=== PATIENT | female | born 1980 | race Caucasian/White ===

== ENCOUNTER 2018-01-27 11:42 | Emergency (ER) | payer MEDICAID, SELFPAY ==
[2018-01-27 11:44] VITALS: BP 143/94; PULSE 129; RESP 24; TEMP 36.8; O2SAT 93; BMI 37.0
--- NOTE | 2018-01-27 12:23 | EKG12_ITS ---
Test Reason : SOB Blood Pressure : / mmHG Vent. Rate : 122 BPM Atrial Rate : 122 BPM P-R Int : 140 ms QRS Dur : 086 ms QT Int : 312 ms P-R-T Axes : 068 -09 099 degrees QTc Int : 444 ms Sinus tachycardia Poor R wave progression Confirmed by ADAMARIS KLINE, ANTONIETA ([id number]), primer expeditor and drier SONY RUSHING ([id number]) on 01/31/2018 2:49:46 PM Referred By: BONNIE Confirmed By:ANTONIETA BAILON MD
--- NOTE | 2018-01-27 12:32 | PCA ---
NO OLD EKG IN MUSE
[2018-01-27 12:45] VITALS: PULSE 113; RESP 18
[2018-01-27] MEDS: Ipratropium/Albuterol Sulfate 3 ML AMPUL.NEB INHALATION (12:45)
--- NOTE | 2018-01-27 12:45 | ED.VISSUMM ---
- ER Visit Summary Date of Service: 01/27/18 Chief Complaint: Cough and shortness of breath History of Present Illness: The patient is a 37 F with no primary care physician. She reports that she has a cough began approximately 2 weeks ago. Is productive white, clear, yellow sputum without blood. No fever or chills. She has severe shortness of breath and has been wheezing. She ran out of her inhaler approximately 3 weeks ago. She has been nausea and vomited twice. No blood in her emesis. Patient denies any personal history of DVT. No recent travel. No ankle swelling or calf pain. Chest pain. Physical Examination: Vitals: 98.2, 143/94, 129, 24, 93% on room air which is not hypoxic. General: Well-nourished and well-developed. Head: Normocephalic atraumatic. Neck: Supple, no lymphadenopathy. No JVD. Nontender. Cardiovascular: Tachycardic regular rhythm. No murmurs. Respiratory: No respiratory distress. Mild wheezing bilaterally with greatly decreased air movement. Abdominal: Soft, nontender, nondistended, normal bowel sounds. No guarding, rebound, or peritoneal signs. Back: Nontender. Extremities: Nontender, no edema. Skin: Normal color, no rash. Neurologic: Alert and oriented ?3. Cranial nerves II through XII are intact. Normal strength and sensation. Psych: Normal affect. Test Results: CBC is marked for white count of 11.9 with 75 segmented neutrophils and 12 lymphocytes. Chem-7 is more for creatinine 1.03. Glucose is 110. Lactic acid is 1.2. EKG sinus tach at 122 with no ischemic changes. There is no old EKG for comparison. Chest x-ray is read by the radiologist shows a focal infiltrate in her posterior medial right lower lobe. Emergency Department Course and Treatment: Patient was treated with albuterol Atrovent aerosols. She is given Solu-Medrol IV. Her wheezing has resolved and her heart rate is decreased into the low 100s. She was given Levaquin p.o. Treatment Plan: Patient feels much improved and would like to go home. She will be discharged with an albuterol MDI, 5 day burst of prednisone, and Levaquin. Instructed to follow-up the [facility] in 5 days if not improving. Return to the emergency department for any worsening symptoms. Disposition: To home in improved and stable condition. Impression: 1. Pneumonia, community-acquired. This note was generated with [employer] dictation software. It may contain incorrect words, spelling, and punctuation that were not noted in review of the chart prior to signing ED Disposition - Plan for ED Patient: Disposition: Home or Assisted Living Chief Complaint: Shortness of Breath Instructions: ED Pneumonia Adult Prescriptions: Albuterol Inhaler [Ventolin Hfa] 1 - 2 puff INHALATION Q4H PRN PRN #1 inhaler PRN Reason: Wheezing Levofloxacin [Levaquin] 750 mg PO DAILY #7 tablet Prednisone [Deltasone] 60 mg PO DAILY #15 tablet Referrals: Kelly Luis [NON-STAFF] - 3-5 Days if not improving
[2018-01-27] MEDS: 0.9% Normal Saline 1,000 ML 999 ML IV (12:49)
[2018-01-27] MEDS: MethylPREDNISolone 125 MG/2 ML Vial IV (12:52)
--- NOTE | 2018-01-27 12:55 | RAD_ITS ---
STUDY: X-RAY CHEST REASON FOR EXAM: Female, 37 years old. Cough. TECHNIQUE: PA and lateral views of the chest. COMPARISON: None. FINDINGS: EKG electrodes are seen. Focal infiltrate in the posterior medial segment of the right lower lobe. There is no demonstrated pleural abnormality. Normal size heart. Normal mediastinum and renetta. Normal visualized pulmonary arteries. Normal visualized aortic arch and descending thoracic aorta. There is a dextroscoliosis of the thoracic spine. Normal visualized ribs, clavicles, and shoulders. There is no demonstrated abnormality of the visualized soft tissue structures of the upper abdomen. RAD/Chest PA and Lateral IMPRESSION: Focal infiltrate in the posterior medial segment of the right lower lobe. Electronically Signed: Prince Suh MD at 13:12 EDT Tel [phone], Service support ,
[2018-01-27 13:14] LABS: Absolute Lymphocyte Count 1.43 X10^3/ul (0.83-4.51); Basophil# 0.02 X10^3/uL; Basophil% 0.2 % (0-1); Eosinophil# 0.44 X10^3/uL; Eosinophils% 3.7 % (0-5); Hematocrit 40.7 % (37-47); Hemoglobin 12.4 g/dl (12.0-15.0); Lymphocyte # 1.43 X10^3/ul (4.0); Mean Corp Hgb Conc 30.5 g/gl (32-36); Mean Corpuscular Hgb 21.9 pg (27.0-32.0); Mean Platelet Vol. 8.5 fl (6.2-12.0); Monocyte# 1.02 X10^3/uL; Monocyte% 8.5 % (0-10); Neutrophil # 9.01 X10^3/uL (2.7-7.7); Neutrophil % 75.4 % (47-70); Platelet Count 294 K/mm3 (150-450); RBC Distribution Width CV 18.2 % (11.6-14.6); RBC Distribution Width SD 47.9 fl (35.1-43.9); Red Blood Count 5.65 M/mm3 (4.2-5.4); White Blood Count 11.9 K/mm3 (4.4-11.0)
[2018-01-27 13:16] LABS: Differential Indicated SCAN CRITERIA MET; POSITIVE COUNT NO; POSITIVE DIFFERENTIAL NO; POSITIVE MORPHOLOGY YES
[2018-01-27 13:20] LABS: Anion Gap 5 (5-15); BUN 13 mg/dL (7-18); BUN/Creat Ratio 12.6 RATIO (10-20); Calcium,Total 8.7 mg/dL (8.5-10.1); Chloride 102 mmol/L (98-107); Creatinine, Serum 1.03 mg/dL (0.55-1.02); EST Glomerular Filtration Rate 64 mL/min (>60); Est Glom Filt Rate - Afr Amer 78 mL/min (>60); Estimated Creatinine Clearance 67.94 ml/min; Glucose 110 mg/dL (74-106); Potassium 4.1 mmol/L (3.5-5.1); Sodium Level 136 mmol/L (136-145)
[2018-01-27 13:36] LABS: Hypochromasia RARE; Microcytosis 2+; Platelet Estimate ADEQUATE (ADEQ)
[2018-01-27 13:37] LABS: Lactic Acid 1.3 mmol/L (0.4-2.0)
[2018-01-27] MEDS: levoFLOXacin 750 MG Tablet PO (14:03)
[2018-01-27 14:04] VITALS: BP 109/97; PULSE 107; RESP 22; O2SAT 95
== END 2018-01-27 14:05 | disposition home or self-care (01) ==
PROVIDERS: Emergency Provider Emergency Medicine
DX: J18.9 Pneumonia, unspecified organism (principal); J45.909 Unspecified asthma, uncomplicated; Z87.01 Personal history of pneumonia (recurrent); Z90.710 Acquired absence of both cervix and uterus
CPT/HCPCS: 36415; 71046; 80048; 83605; 85025; 87040; 93005; 94640; 96361; 96374; 99285; J7030

== ENCOUNTER 2018-02-02 16:45 | Inpatient (IN) | payer MEDICAID, SELFPAY ==
[2018-02-02 16:46] VITALS: BP 138/78; PULSE 142; RESP 18; TEMP 36.8; O2SAT 99; BMI 37.3
[2018-02-02 17:24] LABS: Absolute Lymphocyte Count 1.16 X10^3/ul (0.83-4.51); Absolute Neutrophil Count 16.4 X10^3/uL (2.0-7.7); Basophil# 0.02 X10^3/uL; Basophil% 0.1 % (0-1); Eosinophil# 0.04 X10^3/uL; Eosinophils% 0.2 % (0-5); Hematocrit 40.7 % (37-47); Hemoglobin 12.6 g/dl (12.0-15.0); Lymphocyte # 1.16 X10^3/ul (4.0); Lymphocyte % 6.1 % (19-41); Mean Corpuscular Hgb 21.8 pg (27.0-32.0); Mean Corpuscular Volume 70.5 fL (81-99); Mean Platelet Vol. 8.7 fl (6.2-12.0); Monocyte# 1.22 X10^3/uL; Monocyte% 6.5 % (0-10); Neutrophil # 16.38 X10^3/uL (2.7-7.7); Neutrophil % 86.8 % (47-70); Platelet Count 282 K/mm3 (150-450); RBC Distribution Width CV 18.4 % (11.6-14.6); RBC Distribution Width SD 47.3 fl (35.1-43.9); Red Blood Count 5.77 M/mm3 (4.2-5.4); White Blood Count 18.9 K/mm3 (4.4-11.0)
[2018-02-02 17:25] LABS: POSITIVE COUNT NO; POSITIVE DIFFERENTIAL NO; POSITIVE MORPHOLOGY NO
[2018-02-02 17:41] LABS: Anion Gap 12 (5-15); BUN 50 mg/dL (7-18); BUN/Creat Ratio 11.5 RATIO (10-20); Calcium,Total 9.2 mg/dL (8.5-10.1); Chloride 99 mmol/L (98-107); Creatinine, Serum 4.36 mg/dL (0.55-1.02); EST Glomerular Filtration Rate 12 mL/min (>60); Est Glom Filt Rate - Afr Amer 15 mL/min (>60); Estimated Creatinine Clearance 16.05 ml/min; Glucose 132 mg/dL (74-106); Potassium 4.6 mmol/L (3.5-5.1); Sodium Level 134 mmol/L (136-145)
[2018-02-02 17:51] LABS: Pregnancy, Serum, hCG Quali. NEGATIVE Negative (0-9 Nonpreg)
--- NOTE | 2018-02-02 17:57 | RAD_ITS ---
STUDY: X-RAY - ACUTE ABDOMINAL SERIES REASON FOR EXAM: Female, 37 years old. Distention nausea and vomiting. TECHNIQUE: Single view of the chest. Supine, and erect view(s) of the abdomen were obtained. COMPARISON: 01/27/2018. FINDINGS: Probable persistent atelectasis or infiltrate in the medial right lung base. Normal size heart. Normal mediastinum and renetta. Normal visualized pulmonary arteries. Normal visualized aortic arch and descending thoracic aorta. There is a non-specific bowel gas pattern. The soft tissue structures of the abdomen and pelvis are unremarkable. S-shaped scoliosis throughout the spine. RAD/Acute Abdomen Inc Chest IMPRESSION: Persistent density in the medial right lung base consistent with atelectasis or infiltrate. No evidence of obstruction. Electronically Signed: Hai Hermosillo MD at 19:08 EDT , Service support ,
[2018-02-02] MEDS: proMETHazine 25 MG/ML Syringe 6.25 MG IV (18:05)
[2018-02-02] MEDS: 0.9% Normal Saline 1,000 ML 1000 ML IV ×2 (18:06→20:48)
[2018-02-02 18:09] VITALS: BP 110/90; PULSE 138; RESP 16; O2SAT 96
[2018-02-02] MEDS: Morphine 4 MG/ML Syringe IV ×2 (18:23→20:53)
[2018-02-02 18:53] LABS: AST(SGOT) 29 U/L (15-37); Alanine Aminotransfer ALT/SGPT 11 U/L (13-56); Albumin, Serum 2.2 g/dL (3.2-5.0); Alkaline Phosphatase 62 U/L (45-117); Bilirubin, Direct 0.15 mg/dL (0.00-0.30); Globulin 4.9 g/dL (2.2-4.2); Lipase 43 U/L (73-393); Protein, Total 7.1 g/dL (6.4-8.2)
[2018-02-02 20:41] VITALS: BP 134/100; PULSE 129; RESP 19; O2SAT 93
--- NOTE | 2018-02-02 20:47 | US_ITS ---
STUDY: ABDOMINAL ULTRASOUND - RIGHT UPPER QUADRANT REASON FOR VISIT: Female, 37 years old. Abdominal pain. Nausea and vomiting. TECHNIQUE: Ultrasound evaluation of the right upper quadrant was performed with real-time and static johansen-scale imaging. TECHNICAL QUALITY: Adequate. COMPARISON: None. FINDINGS: Liver: The liver measures 19.5 cm. There is a heterogeneous echogenicity of the liver. The bile ducts are within normal limits. There is hepatic color flow. The direction of portal flow is hepatopetal. There is no demonstrated mass lesion. Gallbladder: Normal distended gallbladder. The gallbladder wall measures 3 mm. There is a negative sonographic Tejada's sign. There is pericholecystic fluid. There are no gallstones. There is sludge. Common Bile Duct (C.B.D.): The common bile duct measures 6 mm. Pancreas: Normal size of the head, body of the pancreas. Tail of the pancreas is suboptimally seen. There is normal echogenicity of the pancreas. There is no demonstrated pancreatic mass or cyst. Right Kidney: Normal size of the right kidney. The right kidney measures 10.8 cm. Normal renal cortex. The right cortex measures 1.5 cm. There is a 1.6 cm cyst. There is mild hydronephrosis of the right kidney. Marked free flowing ascites seen. US/Gallbladder IMPRESSION: Marked ascites. Hepatomegaly with a heterogeneous liver but no gross focal mass. Sludge in the gallbladder with a thickened wall. Electronically Signed: Hai Hermosillo MD at 21:40 EDT , Service support ,
--- NOTE | 2018-02-02 21:10 | NURSING ---
DR. JULIAN WAS MADE AWARE OF PATIENT'S INABILITY TO VOID FOR A SPECIMEN AND FOR HER PAIN LEVEL 9.5/10. HE STATES THE PATIENT IS IN ACUTE RENAL FAILURE. HE ORDERED ANOTHER LITER OF FLUIDS, MORPHINE AND AN ULTRASOUND TO TO SEE IF SHE HAS ANY GALLBLADDER ISSUES.
[2018-02-02 22:06] VITALS: BP 135/90; PULSE 120; RESP 18; O2SAT 94
--- NOTE | 2018-02-02 22:52 | ED.VISSUMM ---
- ER Visit Summary Date of Service: 02/02/18 Chief Complaint: Right-sided abdominal pain and nausea and vomiting since January 27 History of Present Illness: The patient is a 37 F who presents with right-sided abdominal pain which localized to the right upper quadrant with nausea and vomiting since January 27. She was seen at that time. Her blood work was unremarkable. She denies fever, chills night sweats. She denies cough, shortness of breath or difficulty breathing. Denies chest pain. She denies intolerance to greasy or fried foods. There is family history of cholelithiasis. She reports decreased urine output. She does report lightheadedness with standing. These read written note for complete detail Physical Examination: Vital signs remarkable for heart rate 142. HEENT exam is remarkable dry mucosa. Heart is rapid and regular. Lungs are clear to auscultation. Abdomen is remarkable tenderness in the right upper quadrant. Negative Tejada sign. Bowel sounds are slightly diminished. She is slightly tympanitic. There is no CVA tenderness noted. There is no skin lesions noted. She appears slightly pale. Neuro exam is nonfocal. Test Results: White count is 18.9 thousand with 87 segs no bands. BUN and creatinine are 50 and 4.36 with a GFR of 12. On January 27 creatinine was 1.03. Hepatic and lipase normal. Serum test negative. Ultrasound of the gallbladder reveals thickened gallbladder wall and sludge. Emergency Department Course and Treatment: X-ray of the abdomen was obtained because she states she has not had a bowel movement in 2 days. She has had prior gynecologic surgery with a total hysterectomy and bilateral salpingo-fracture secondary to cancer. Blood work was obtained and because of the right upper quadrant pain since there was no evidence of obstruction and ultrasound of the gallbladder was obtained. Treatment Plan: Dr. Lopez hospitalist was notified for admission Disposition: Admit [facility] floor Impression: 1. Right-sided abdominal pain unknown etiology 2. Nausea and vomiting 3. Severe dehydration 4. Acute renal failure 5. Sinus tachycardia documented on monitor This note was generated with [employer] dictation software. It may contain incorrect words, spelling, and punctuation that were not noted in review of the chart prior to signing ED Disposition - Plan for ED Patient: Chief Complaint: Nausea/Vomiting Referrals: Care Physician,No Primary [Primary Care Provider] -
[2018-02-02 22:58] VITALS: BP 119/94; PULSE 120; RESP 14; TEMP 36.5; O2SAT 93
[2018-02-02] MEDS: Metoclopramide 10 MG/2 ML Vial IV (23:05)
[2018-02-03] VITALS (11 sets, daily range): BP systolic 123–132; BP diastolic 80–91; PULSE 95–124; RESP 16–20; TEMP 36.5–37.1; O2SAT 94–96; BMI 37.5; BMI 37.6
--- NOTE | 2018-02-03 00:37 | EKG12_ITS ---
Test Reason : ABD PAIN Blood Pressure : / mmHG Vent. Rate : 119 BPM Atrial Rate : 119 BPM P-R Int : 152 ms QRS Dur : 092 ms QT Int : 320 ms P-R-T Axes : 045 -10 078 degrees QTc Int : 450 ms Sinus tachycardia Otherwise normal ECG When compared with ECG of 27-JAN-2018 12:42, Nonspecific T wave abnormality, worse in Lateral leads Confirmed by MICHAEL KLINE, XOCHILT ([id number]), magazine editor SONY RUSHING ([id number]) on 02/14/2018 2:41:03 PM Referred By: NELLY Confirmed By:XOCHILT RODRIGUEZ MD
--- NOTE | 2018-02-03 00:46 | PCM.HP.STD ---
Problem List (1) Abdominal pain Status: Acute (2) Ascites Status: Acute (3) Right lower lobe CAP Status: Acute (4) Acute kidney injury Status: Acute (5) History of uterine cancer Status: Chronic Comment: History of hysterectomy plus bilateral salpingo-oophorectomy August 2017 (6) Asthma Status: Chronic Qualifiers: Asthma severity: mild Asthma persistence: intermittent History of Present Illness Date of Admission: 02/03/18 Chief Complaint: Abdominal pain, nausea and vomiting for 1 week The patient is a 37 year old F with history of asthma with recent ER visit on 01/27/2018 for cough and shortness of breath for 2 weeks and was diagnosed right lower lobe community acquired pneumonia and asthma exacerbation, sent home on Levaquin and prednisone came to ER today with intractable nausea, vomiting, abdominal pain, not able to keep food down in his stomach, and left features consistent with acute kidney injury. She further said she took 1 or 2 days of Levaquin because of vomiting. Abdominal pain is predominantly in the right upper quadrant, persistent, sharp and stabbing along with nausea and vomiting, gastric/sometimes bilious. In ER, she was found tachycardic, heart rate 1 30/min, tachypneic 19/min but no hypoxia. Labs remarkable for creatinine 4.36, BUN 50, albumin 2.2 and globin 4.9. She also has leukocytosis with left shift most probably from recent prednisone/steroid effect. Right upper quadrant sonogram shows hepatomegaly with marked ascites and heterogeneous liver but no gross focal mass. Gallbladder wall 3 mm with no stones but sludge. Creatinine right kidney reported as 1.6 cm cyst and mild hydronephrosis. Past Medical History Past Medical History (Chronic Problems): Chronic Problems History of uterine cancer (Chronic) History of hysterectomy plus bilateral salpingo-oophorectomy August 2017 Asthma (Chronic) Allergies Penicillins [PCN] Allergy (Verified 02/02/18 16:47) Hives Home Medications: Ambulatory Orders Medication Instructions Recorded Albuterol Inhaler [Ventolin Hfa] 1 - 2 puff INHALATION Q4H PRN PRN 01/27/18 #1 inhaler Cetirizine HCl [Zyrtec] 10 mg PO DAILY 01/27/18 Levofloxacin [Levaquin] 750 mg PO DAILY #7 tablet 01/27/18 Prednisone [Deltasone] 60 mg PO DAILY #15 tablet 01/27/18 Sitagliptin Phosphate [Januvia] 25 mg PO DAILY 02/03/18 Smoking Status: Never smoker - *Family History Maternal History Items: No pertinent history Review of Systems Constitutional: Reports: Anorexia, Malaise, Weakness, Fatigue. Denies: Chills, Fever HEENT: Reports: Sinus Congestion. Denies: Head Aches, Sinus Drainage Cardiovascular: Denies: Chest Pain, Palpitations Respiratory: Reports: Cough. Denies: Shortness of breath at rest, Sputum production Gastrointestinal: Reports: Abdominal Pain, Constipation, Nausea, Vomiting. Denies: Hematemesis Genitourinary: Denies: Dysuria Musculoskeletal: Denies: Joint Pain, Joint Tenderness Skin: Denies: Rash, Wounds Neurological: Denies: Numbness, Tingling, Focal weakness Psychiatric: Reports: Anxiety. Denies: Depression, Homicidal Ideations, Suicidal Ideations Hematologic/ Lymphatic: Denies: Easy Bruising, Easy Bleeding VTE Information - Inpt Only VTE Present on Admission: No VTE Mechan Device Prophylaxis: SCD's VTE Pharm Prophylaxis ordered?: Yes Patient Problems: Active and Suspected Problems Abdominal pain (Acute) Ascites (Acute) Right lower lobe CAP (Acute) Acute kidney injury (Acute) - Physical Exam General: Alert, Oriented x3, Cooperative HEENT: Atraumatic, PERRLA, EOMI, Normocephalic Oral: Dry Mucosa Neck: Supple, No JVD, Negative Carotid Bruits Lungs: Clear to auscultation, No rhonchi, No wheeze, No rales, Diminished Cardiovascular: Regular rate, Regular Rhythm, Normal S1, Normal S2, No murmurs Abdomen: Bowel Sounds Present, Soft, Hypoactive Bowel Sounds, Hepatomegaly, Tender - Very tender right upper quadrant. Not examined hepatomegaly but ultrasound shows hepatomegaly. Extremities: Capillary Refill Less than 3 Seconds, Edema Skin: No rashes, No breakdown Musculoskeletal: No Tenderness to Palpation of Joints or Extremities Neurological: Cranial nerves II-XII grossly intact, Neuro grossly intact Psych/Mental Status: Normal Affect, Appropriate Vital Signs Temp Pulse Resp BP Pulse Ox 98.8 F 120 H 16 132/91 H 96 02/03/18 00:37 02/03/18 00:37 02/03/18 00:37 02/03/18 00:37 02/03/18 00:37 Oxygen Delivery Method Room Air Weight: 229 lb 4.492 oz Body Mass Index (BMI) 37.5 Assessment/Plan Active and Suspected Problems Abdominal pain (Acute) Ascites (Acute) Right lower lobe CAP (Acute) Acute kidney injury (Acute) The patient is a 37 year old F with history of asthma with recent ER visit on 01/27/2018 for cough and shortness of breath for 2 weeks and was diagnosed right lower lobe community acquired pneumonia and asthma exacerbation, sent home on Levaquin and prednisone came to ER today with intractable nausea, vomiting, abdominal pain, not able to keep food down in his stomach, and left features consistent with acute kidney injury. She further said she took 1 or 2 days of Levaquin because of vomiting. Abdominal pain is predominantly in the right upper quadrant, persistent, sharp and stabbing along with nausea and vomiting, gastric/sometimes bilious. In ER, she was found tachycardic, heart rate 1 30/min, tachypneic 19/min but no hypoxia. Labs remarkable for creatinine 4.36, BUN 50, albumin 2.2 and globin 4.9. She also has leukocytosis with left shift most probably from recent prednisone/steroid effect. Right upper quadrant sonogram shows hepatomegaly with marked ascites and heterogeneous liver but no gross focal mass. Gallbladder wall 3 mm with no stones but sludge. Creatinine right kidney reported as 1.6 cm cyst and mild hydronephrosis. 1. Right upper quadrant abdominal pain, nausea and vomiting with ascites possible SBP: Patient had abdominal x-ray series in ER which shows nonspecific gas pattern with no evidence of acute abdomen. Right upper quadrant sonogram as mentioned above shows marked ascites. Ultrasound-guided paracentesis ordered for tomorrow along with fluid chemistry and cell count, culture and cytology. She has a history of uterine cancer as mentioned below. Started on IV ceftriaxone to cover for both pneumonia and SBP. 2. Acute kidney injury most probably prerenal nausea and vomiting/possible ATN from pneumonia/probable SBP?: Right upper quadrant shows mild hydronephrosis. IV fluid resuscitation. Monitor kidney function and electrolytes. If creatinine does not improve will need retroperitoneal ultrasound and nephrology consult. 3. Recent diagnosis of right lower lobe community-acquired pneumonia on 01/27/2018 she did not complete antibiotic course. Started on IV ceftriaxone and Zithromax. Chest x-ray shows persistent infiltrate in the right lower lobe. On DuoNeb every 4 hourly as needed. 4. Chronic intermittent asthma: Does not seem to be an asthma exacerbation and does not require steroid. I think she had prednisone given in the ER and has leukocytosis. On Pulmicort inhalation and DuoNeb as needed. 4. Recent diagnosis of uterine cancer status post complete hysterectomy and bilateral salpingo-cystectomy; possible radical hysterectomy: She was told her cancer is cleared and does not require further adjuvant therapy. Check ascitic fluid for cancer cells. DVT prophylaxis: Heparin 5000 units subcutaneous twice daily and bilateral SCDs. Hold heparin prior to paracentesis tomorrow a.m. Laboratory Results 02/02/18 17:00: WBC 18.9 H, RBC 5.77 H, Hgb 12.6, Hct 40.7, MCV 70.5 L, MCH 21.8 L, MCHC 31.0 L, RDW 18.4 H, RDW Differential 47.3 H, Plt Count 282, MPV 8.7, Immature Gran % (Auto) 0.300, Neut % (Auto) 86.8 H, Lymph % (Auto) 6.1 L, Gage % (Auto) 6.5, Eos % (Auto) 0.2, Baso % (Auto) 0.1, Absolute Neuts (auto) 16.4 H, Absolute Lymphs (auto) 1.16, Total Counted Not Reportable 02/02/18 17:00: Sodium 134 L, Potassium 4.6, Chloride 99, Carbon Dioxide 23.0, Anion Gap 12, BUN 50 H, Creatinine 4.36 H, Estim Creat Clear Calc 16.05, Est GFR (MDRD) Af Amer 15 L, Est GFR (MDRD) Non-Af 12 L, BUN/Creatinine Ratio 11.5, Glucose 132 H, Calcium 9.2 02/02/18 17:00: Serum , Qual NEGATIVE 02/02/18 17:00: Total Bilirubin 0.60, Direct Bilirubin 0.15, AST 29, ALT 11 L, Alkaline Phosphatase 62, Total Protein 7.1, Albumin 2.2 L, Globulin 4.9 H, Lipase 43 L Clinical Impression(s) from Imaging Studies Acute Abdomen Series 02/02/18 17:57 IMPRESSION: Persistent density in the medial right lung base consistent with atelectasis or infiltrate. No evidence of obstruction. Electronically Signed: Hai Hermosillo MD at 19:08 EDT , Service support , Gallbladder Ultrasound 02/02/18 20:47 IMPRESSION: Marked ascites. Hepatomegaly with a heterogeneous liver but no gross focal mass. Sludge in the gallbladder with a thickened wall. Electronically Signed: Hai Hermosillo MD at 21:40 EDT , Service support , Code Visit Inpatient E&M: 61414 Init Hosp L3
[2018-02-03 01:01] LABS: Bedside Glucose 122 mg/dL (70-110)
--- NOTE | 2018-02-03 01:03 | HP.PCM_ITS ---
Problem List (1) Abdominal pain Status: Acute (2) Ascites Status: Acute (3) Right lower lobe CAP Status: Acute (4) Acute kidney injury Status: Acute (5) History of uterine cancer Status: Chronic Comment: History of hysterectomy plus bilateral salpingo- oophorectomy August 2017 (6) Asthma Status: Chronic Qualifiers: Asthma severity: mild Asthma persistence: intermittent History of Present Illness Date of Admission: 02/03/18 Chief Complaint: Abdominal pain, nausea and vomiting for 1 week The patient is a 37 year old F with history of asthma with recent ER visit on for cough and shortness of breath for 2 weeks and was diagnosed right lower lobe community acquired pneumonia and asthma exacerbation, sent home on Levaquin and prednisone came to ER today with intractable nausea, vomiting, abdominal pain, not able to keep food down in his stomach, and left features consistent with acute kidney injury. She further said she took 1 or 2 days of Levaquin because of vomiting. Abdominal pain is predominantly in the right upper quadrant, persistent, sharp and stabbing along with nausea and vomiting, gastric/sometimes bilious. In ER, she was found tachycardic, heart rate 1 30/min, tachypneic 19/min but no hypoxia. Labs remarkable for creatinine 4.36, BUN 50, albumin 2.2 and globin 4.9. She also has leukocytosis with left shift most probably from recent prednisone/steroid effect. Right upper quadrant sonogram shows hepatomegaly with marked ascites and heterogeneous liver but no gross focal mass. Gallbladder wall 3 mm with no stones but sludge. Creatinine right kidney reported as 1.6 cm cyst and mild hydronephrosis. Past Medical History Past Medical History (Chronic Problems): Chronic Problems History of uterine cancer (Chronic) History of hysterectomy plus bilateral salpingo-oophorectomy August 2017 Asthma (Chronic) Allergies Penicillins [PCN] Allergy (Verified 02/02/18 16:47) Hives Home Medications: Ambulatory Orders Medication Instructions Recorded Albuterol Inhaler [Ventolin Hfa] 1 - 2 puff INHALATION Q4H PRN PRN 01/27/18 #1 inhaler Cetirizine HCl [Zyrtec] 10 mg PO DAILY 01/27/18 Levofloxacin [Levaquin] 750 mg PO DAILY #7 tablet 01/27/18 Prednisone [Deltasone] 60 mg PO DAILY #15 tablet 01/27/18 Sitagliptin Phosphate [Januvia] 25 mg PO DAILY 02/03/18 Smoking Status: Never smoker - *Family History Maternal History Items: No pertinent history Review of Systems Constitutional: Reports: Anorexia, Malaise, Weakness, Fatigue. Denies: Chills, Fever HEENT: Reports: Sinus Congestion. Denies: Head Aches, Sinus Drainage Cardiovascular: Denies: Chest Pain, Palpitations Respiratory: Reports: Cough. Denies: Shortness of breath at rest, Sputum production Gastrointestinal: Reports: Abdominal Pain, Constipation, Nausea, Vomiting. Denies: Hematemesis Genitourinary: Denies: Dysuria Musculoskeletal: Denies: Joint Pain, Joint Tenderness Skin: Denies: Rash, Wounds Neurological: Denies: Numbness, Tingling, Focal weakness Psychiatric: Reports: Anxiety. Denies: Depression, Homicidal Ideations, Suicidal Ideations Hematologic/ Lymphatic: Denies: Easy Bruising, Easy Bleeding VTE Information - Inpt Only VTE Present on Admission: No VTE Mechan Device Prophylaxis: SCD's VTE Pharm Prophylaxis ordered?: Yes Patient Problems: Active and Suspected Problems Abdominal pain (Acute) Ascites (Acute) Right lower lobe CAP (Acute) Acute kidney injury (Acute) - Physical Exam General: Alert, Oriented x3, Cooperative HEENT: Atraumatic, PERRLA, EOMI, Normocephalic Oral: Dry Mucosa Neck: Supple, No JVD, Negative Carotid Bruits Lungs: Clear to auscultation, No rhonchi, No wheeze, No rales, Diminished Cardiovascular: Regular rate, Regular Rhythm, Normal S1, Normal S2, No murmurs Abdomen: Bowel Sounds Present, Soft, Hypoactive Bowel Sounds, Hepatomegaly, Tender - Very tender right upper quadrant. Not examined hepatomegaly but ultrasound shows hepatomegaly. Extremities: Capillary Refill Less than 3 Seconds, Edema Skin: No rashes, No breakdown Musculoskeletal: No Tenderness to Palpation of Joints or Extremities Neurological: Cranial nerves II-XII grossly intact, Neuro grossly intact Psych/Mental Status: Normal Affect, Appropriate Vital Signs Temp Pulse Resp BP Pulse Ox 98.8 F 120 H 16 132/91 H 96 02/03/18 00:37 02/03/18 00:37 02/03/18 00:37 02/03/18 00:37 02/03/18 00:37 Oxygen Delivery Method Room Air Weight: 229 lb 4.492 oz Body Mass Index (BMI) 37.5 Assessment/Plan Active and Suspected Problems Abdominal pain (Acute) Ascites (Acute) Right lower lobe CAP (Acute) Acute kidney injury (Acute) The patient is a 37 year old F with history of asthma with recent ER visit on for cough and shortness of breath for 2 weeks and was diagnosed right lower lobe community acquired pneumonia and asthma exacerbation, sent home on Levaquin and prednisone came to ER today with intractable nausea, vomiting, abdominal pain, not able to keep food down in his stomach, and left features consistent with acute kidney injury. She further said she took 1 or 2 days of Levaquin because of vomiting. Abdominal pain is predominantly in the right upper quadrant, persistent, sharp and stabbing along with nausea and vomiting, gastric/sometimes bilious. In ER, she was found tachycardic, heart rate 1 30/min, tachypneic 19/min but no hypoxia. Labs remarkable for creatinine 4.36, BUN 50, albumin 2.2 and globin 4.9. She also has leukocytosis with left shift most probably from recent prednisone/steroid effect. Right upper quadrant sonogram shows hepatomegaly with marked ascites and heterogeneous liver but no gross focal mass. Gallbladder wall 3 mm with no stones but sludge. Creatinine right kidney reported as 1.6 cm cyst and mild hydronephrosis. 1. Right upper quadrant abdominal pain, nausea and vomiting with ascites possible SBP: Patient had abdominal x-ray series in ER which shows nonspecific gas pattern with no evidence of acute abdomen. Right upper quadrant sonogram as mentioned above shows marked ascites. Ultrasound-guided paracentesis ordered for tomorrow along with fluid chemistry and cell count, culture and cytology. She has a history of uterine cancer as mentioned below. Started on IV ceftriaxone to cover for both pneumonia and SBP. 2. Acute kidney injury most probably prerenal nausea and vomiting/possible ATN from pneumonia/probable SBP?: Right upper quadrant shows mild hydronephrosis. IV fluid resuscitation. Monitor kidney function and electrolytes. If creatinine does not improve will need retroperitoneal ultrasound and nephrology consult. 3. Recent diagnosis of right lower lobe community-acquired pneumonia on 2017 she did not complete antibiotic course. Started on IV ceftriaxone and Zithromax. Chest x-ray shows persistent infiltrate in the right lower lobe. On DuoNeb every 4 hourly as needed. 4. Chronic intermittent asthma: Does not seem to be an asthma exacerbation and does not require steroid. I think she had prednisone given in the ER and has leukocytosis. On Pulmicort inhalation and DuoNeb as needed. 4. Recent diagnosis of uterine cancer status post complete hysterectomy and bilateral salpingo-cystectomy; possible radical hysterectomy: She was told her cancer is cleared and does not require further adjuvant therapy. Check ascitic fluid for cancer cells. DVT prophylaxis: Heparin 5000 units subcutaneous twice daily and bilateral SCDs. Hold heparin prior to paracentesis tomorrow a.m. Laboratory Results 02/02/18 17:00: WBC 18.9 H, RBC 5.77 H, Hgb 12.6, Hct 40.7, MCV 70.5 L, MCH 21.8 L, MCHC 31.0 L, RDW 18.4 H, RDW Differential 47.3 H, Plt Count 282, MPV 8.7 , Immature Gran % (Auto) 0.300, Neut % (Auto) 86.8 H, Lymph % (Auto) 6.1 L, [place] % (Auto) 6.5, Eos % (Auto) 0.2, Baso % (Auto) 0.1, Absolute Neuts (auto) 16.4 H, Absolute Lymphs (auto) 1.16, Total Counted Not Reportable 02/02/18 17:00: Sodium 134 L, Potassium 4.6, Chloride 99, Carbon Dioxide 23.0, Anion Gap 12, BUN 50 H, Creatinine 4.36 H, Estim Creat Clear Calc 16.05, Est GFR (MDRD) Af Amer 15 L, Est GFR (MDRD) Non-Af 12 L, BUN/Creatinine Ratio 11.5, Glucose 132 H, Calcium 9.2 02/02/18 17:00: Serum , Qual NEGATIVE 02/02/18 17:00: Total Bilirubin 0.60, Direct Bilirubin 0.15, AST 29, ALT 11 L, Alkaline Phosphatase 62, Total Protein 7.1, Albumin 2.2 L, Globulin 4.9 H, Lipase 43 L Clinical Impression(s) from Imaging Studies Acute Abdomen Series 02/02/18 17:57 IMPRESSION: Persistent density in the medial right lung base consistent with atelectasis or infiltrate. No evidence of obstruction. Electronically Signed: Hai Hermosillo MD at 19:08 EDT , Service support , Gallbladder Ultrasound 02/02/18 20:47 IMPRESSION: Marked ascites. Hepatomegaly with a heterogeneous liver but no gross focal mass. Sludge in the gallbladder with a thickened wall. Electronically Signed: Hai Hermosillo MD at 21:40 EDT , Service support , Code Visit Inpatient E&M: 06280 Init Hosp L3
[2018-02-03] MEDS: 0.9% Normal Saline 1,000 ML 150 ML IV ×2 (01:40→08:43)
[2018-02-03] MEDS: Ceftriaxone 1 GM/50 ML BAG IV ×2 (01:41→12:45)
[2018-02-03] MEDS: Morphine 2 MG/ML Syringe IV (01:43)
[2018-02-03 05:51] LABS: Bacteria 0 SEEN /hpf (None Seen); Mucous, Urine 0 SEEN /hpf (<or=2+)
[2018-02-03 05:53] LABS: Absolute Lymphocyte Count 1.13 X10^3/ul (0.83-4.51); Absolute Neutrophil Count 13.5 X10^3/uL (2.0-7.7); Basophil# 0.01 X10^3/uL; Basophil% 0.1 % (0-1); Eosinophil# 0.02 X10^3/uL; Eosinophils% 0.1 % (0-5); Hematocrit 34.1 % (37-47); Hemoglobin 10.8 g/dl (12.0-15.0); Lymphocyte # 1.13 X10^3/ul (4.0); Lymphocyte % 7.2 % (19-41); Mean Corp Hgb Conc 31.7 g/gl (32-36); Mean Corpuscular Hgb 22.1 pg (27.0-32.0); Mean Corpuscular Volume 69.9 fL (81-99); Mean Platelet Vol. 8.7 fl (6.2-12.0); Monocyte# 0.98 X10^3/uL; Monocyte% 6.3 % (0-10); Neutrophil # 13.48 X10^3/uL (2.7-7.7); Neutrophil % 85.9 % (47-70); Platelet Count 293 K/mm3 (150-450); RBC Distribution Width CV 18.8 % (11.6-14.6); RBC Distribution Width SD 47.9 fl (35.1-43.9); Red Blood Count 4.88 M/mm3 (4.2-5.4); White Blood Count 15.7 K/mm3 (4.4-11.0)
[2018-02-03 05:55] LABS: POSITIVE COUNT NO; POSITIVE DIFFERENTIAL NO; POSITIVE MORPHOLOGY NO
--- NOTE | 2018-02-03 05:55 | RAD_ITS ---
STUDY: X-RAY CHEST REASON FOR EXAM: Female, 37 years old. Right lower lobe infiltrate TECHNIQUE: PA and lateral views of the chest. COMPARISON: Previous study of 01/27/2018 FINDINGS: playground monitor leads are present. There is again noted a right lower lobe infiltrate, similar to the previous study. There is no demonstrated pleural abnormality. Normal size heart. Normal mediastinum and renetta. Normal visualized pulmonary arteries. Normal visualized aortic arch and descending thoracic aorta. There is a mid thoracic dextroscoliosis. Normal visualized ribs, clavicles, and shoulders. There is no demonstrated abnormality of the visualized soft tissue structures of the upper abdomen. RAD/Chest PA and Lateral IMPRESSION: Right lower lobe infiltrate, stable in the interval. Mid thoracic dextroscoliosis. Electronically Signed: Alvin Hicks MD at 16:05 EDT , Service support ,
[2018-02-03 06:13] LABS: AST(SGOT) 15 U/L (15-37); Alanine Aminotransfer ALT/SGPT 7 U/L (13-56); Albumin, Serum 1.8 g/dL (3.2-5.0); Alkaline Phosphatase 51 U/L (45-117); Anion Gap 11 (5-15); BUN 47 mg/dL (7-18); BUN/Creat Ratio 12.2 RATIO (10-20); Chloride 104 mmol/L (98-107); Creatinine, Serum 3.85 mg/dL (0.55-1.02); EST Glomerular Filtration Rate 14 mL/min (>60); Est Glom Filt Rate - Afr Amer 17 mL/min (>60); Estimated Creatinine Clearance 18.18 ml/min; Globulin 4.1 g/dL (2.2-4.2); Glucose 102 mg/dL (74-106); LDH 639 U/L (84-246); Potassium 4.8 mmol/L (3.5-5.1); Protein, Total 5.9 g/dL (6.4-8.2); Sodium Level 136 mmol/L (136-145)
[2018-02-03 06:20] LABS: Color, Urine Yellow (Yellow); Glucose, Dipstick Normal (Normal); Ketone-Dipstick 5 mg/dl (Negative); Leukocyte Esterase-Dipstick 100 /ul (Negative); Nitrite-Dipstick Negative (Negative); Occult Blood-Urine 250 /ul (Negative); Protein-Dipstick 15 mg/dl (Negative); Urine Bilirubin Dipstick Negative (Negative); Urine Clarity Sl. Cloudy (Clear); Urine Urobilinogen Normal (Normal)
[2018-02-03 06:38] LABS: Squamous Epithelial Cells - UA 0-5 SEEN /hpf (5-10); Transitional Epithelial - Ur 0-5 SEEN /hpf (0-5)
[2018-02-03 06:39] LABS: Red Blood Cells-Urine 50-100 SEEN /hpf (0-5); White Blood Cells 5-10 SEEN /hpf (0-5)
[2018-02-03 06:51] LABS: Bedside Glucose 109 mg/dL (70-110)
--- NOTE | 2018-02-03 07:55 | US_ITS ---
STUDY: RENAL ULTRASOUND - COMPLETE REASON FOR EXAM: Female, 37 years old. Acute renal failure TECHNIQUE: Ultrasound evaluation of the kidneys was performed with real-time and static evans-scale imaging. COMPARISON: None FINDINGS: RIGHT KIDNEY: Normal location of the right kidney, which is normal in size. The right kidney measures 10.4 x 5.9 x 5.3 cm. There is a normal cortex of the right kidney. The renal cortex measures 1.5 cm. There is a 1.1 x 1.0 x 1.4 cm right renal cyst. There are no right renal calculi. There is no right hydronephrosis. DISTAL RIGHT URETER: There is non-visualization of the distal right ureter. There is no demonstrated right ureterovesical junction calculus. There is no demonstrated right ureteral jet. LEFT KIDNEY: Normal location of the left kidney, which is normal in size. The left kidney measures 10.4 x 5.6 cm. There is a normal cortex of the left kidney. The renal cortex measures 1.5 cm. There is no left renal mass or cyst. There are no left renal calculi. There is mild dilatation of the left renal pelvis. DISTAL LEFT URETER: There is non-visualization of the distal left ureter. There is no demonstrated left ureterovesical junction calculus. There is no demonstrated left ureteral jet. BLADDER: The distended urinary bladder has a volume of 55 ml there is no evidence of bladder mass or calculus. US/Kidney and Bladder IMPRESSION: Small right renal cyst. Mild dilatation of the left renal pelvis. Electronically Signed: Alvin Hicks MD at 23:38 EDT , Service support ,
--- NOTE | 2018-02-03 08:30 | US_ITS ---
PROCEDURE: ULTRASOUND GUIDED PARACENTESIS CLINICAL HISTORY: Female, 37 years old. Ascites. CONSENT: The entire procedure, risks, benefits and alternatives (including doing nothing) were discussed with the patient preprocedure. Risks presented included (but were not limited to) infection/abscess, bleeding, pain, reaction to medications and potential damage to intra-abdominal/intrapelvic structures. All patient questions were answered satisfactorily. Written consent was obtained, witnessed and placed on the patient's chart. Time-Out Called: Yes. Consent form signed: Yes. PT-PTT Levels Checked: Yes. TECHNIQUE: A short timeout was performed. Limited and directed four-quadrant sonographic evaluation of the abdomen was performed. A small to moderate quantity of uncomplicated ascitic fluid was identified within the left lower quadrant. An intended percutaneous site was identified and marked. The anterolateral left lower quadrant abdomen soft tissues were then thoroughly prepped and draped in the usual sterile manner. Local anesthesia was obtained with approximately 1.0 cc of 1% lidocaine without epinephrine. Next, a 5 [place] coaxial, single-step type device was utilized to enter the soft tissues and the peritoneal lining. At this point the central sharp trocar was fixed and the catheter advanced into the fluid collection. Thereafter, approximately 250 cc of serosanguineous ascites was collected. All devices were removed, the soft tissues were cleansed and a sterile occlusive dressing applied. US/Paracentesis with US IMPRESSION: Successful, ultrasound-guided paracentesis. COMPLICATION: The patient tolerated the procedure well. There was no evident immediate post procedure complication. Electronically Signed: Jim Estrada MD at 15:52 EDT , Service support ,
[2018-02-03] MEDS: Morphine 2 MG/ML Syringe 1 MG IV ×4 (08:39→20:52)
[2018-02-03 08:52] LABS: Lactic Acid 1.4 mmol/L (0.4-2.0)
[2018-02-03 10:05] LABS: International Normalized Ratio 1.3; Prothrombin Time (Protime)PT. 16.4 SECONDS (11.7-14.9)
[2018-02-03 10:07] LABS: Partial Thromboplast Time 35.4 Seconds (24.1-36.2)
--- NOTE | 2018-02-03 11:25 | CASEMGMT ---
RN CRISS Face to Face with patient for initial transition planning/care coordination assessment. RN CM introduced self and role at [facility]. Patient lying in bed, alert and oriented. Patient willing to participate in assessment and is able to answer all questions appropriately. Care providers, pharmacy, and demographics verified. See link attached. Patient wishes to discharge home, denies need for home health at this time. RN CM will provide patient with list for PCP in area. and in-network with patient's insurance. Patient states she has no further needs or concerns at this time. CM to follow for discharge planning needs that may arise. Disposition Plan: Patient to discharge home with family support and follow-up plans in place.
--- NOTE | 2018-02-03 11:33 | PCM.PN.HOSP ---
Patient Problems: Active and Suspected Problems Abdominal pain (Acute) Ascites (Acute) Right lower lobe CAP (Acute) Acute kidney injury (Acute) Subjective: Patient was seen and examined. She complains of lower abdominal pain and nausea. She denied fever, chills, SOB, diarrhea or constipation. She is getting abdominal paracentesis done today. Objective: Physical Exam: General: Alert, Oriented x3, Cooperative, not pale, not jaundiced, obese HEENT: Atraumatic, PERRLA, EOMI, Normocephalic Oral: Very dry oral mucosa Neck: Supple Lungs: Diminished air entry, clear to auscultation Cardiovascular: Regular rate, Regular Rhythm, Normal S1, Normal S2, No murmurs Abdomen: Bowel Sounds Present, Soft, Hypoactive Bowel Sounds, Hepatomegaly, Tender - Very tender right upper quadrant. Obese anterior abdominal wall Extremities: Trace bilateral edema Skin: No rashes, No breakdown Musculoskeletal: No Tenderness to Palpation of Joints or Extremities Neurological: Cranial nerves II-XII grossly intact, Neuro grossly intact Psych/Mental Status: Normal Affect, Appropriate Vitals/I&O's: Vital Signs Temp Pulse Resp BP Pulse Ox 98.4 F 117 H 16 123/87 H 94 02/03/18 06:30 02/03/18 06:30 02/03/18 06:30 02/03/18 06:30 02/03/18 06:30 Oxygen Delivery Method Room Air Weight: 104 kg Intake and Output for Last 24 Hours 02/01/18 02/02/18 02/03/18 23:59 23:59 23:59 Intake Total 790 / 790 Balance 790 / 790 Microbiology Past 72 Hours 02/03/18 05:38 Urine, Clean Catch Streptococcus pneumoniae Antigen (M - Final 02/03/18 05:38 Urine, Clean Catch Legionella Antigen - Final Laboratory Results 02/03/18 00:52: POC Glucose 122 H 02/03/18 05:25: WBC 15.7 H, RBC 4.88, Hgb 10.8 L, Hct 34.1 L, MCV 69.9 L, MCH 22.1 L, MCHC 31.7 L, RDW 18.8 H, RDW Differential 47.9 H, Plt Count 293, MPV 8.7, Immature Gran % (Auto) 0.400, Neut % (Auto) 85.9 H, Lymph % (Auto) 7.2 L, [place] % (Auto) 6.3, Eos % (Auto) 0.1, Baso % (Auto) 0.1, Absolute Neuts (auto) 13.5 H, Absolute Lymphs (auto) 1.13, Total Counted Not Reportable 02/03/18 05:25: Sodium 136, Potassium 4.8, Chloride 104, Carbon Dioxide 21.0, Anion Gap 11, BUN 47 H, Creatinine 3.85 H, Estim Creat Clear Calc 18.18, Est GFR (MDRD) Af Amer 17 L, Est GFR (MDRD) Non-Af 14 L, BUN/Creatinine Ratio 12.2, Glucose 102, Calcium 8.0 L, Total Bilirubin 0.70, Direct Bilirubin 0.20, AST 15, ALT 7 L, Alkaline Phosphatase 51, Lactate Dehydrogenase 639 H, Total Protein 5.9 L, Albumin 1.8 L, Globulin 4.1 02/03/18 05:25: Hemoglobin A1c 6.0 02/03/18 05:25: Hepatitis A IgM Ab Pending, Hep Bs Antigen Pending, Hep B Core IgM Ab Pending, Hepatitis C Ab (EIA) Pending 02/03/18 05:25: Anti-Smooth Muscle Ab Pending 02/03/18 05:25: ROBERT Screen Pending, DIRK-1 Antibody Pending, SS-A/Ro IgG Antibody Pending, SS-B/La IgG Antibody Pending, Sm ([place]) Antibody Pending, [employer] Antibody Pending, Scl-70 Scleroderma Ab Pending, Double Strand DNA Ab Pending, Centromere B Antibody Pending 02/03/18 05:38: Urine Color Yellow, Urine Clarity Sl. Cloudy, Urine pH 5.0, Ur Specific [place] 1.020, Urine Protein 15 H, Urine Glucose (UA) Normal, Urine Ketones 5 H, Urine Occult Blood 250 H, Urine Nitrite Negative, Urine Bilirubin Negative, Urine Urobilinogen Normal, Ur Leukocyte Esterase 100 H, Urine RBC 50-100 SEEN, Urine WBC 5-10 SEEN, Ur Squamous Epith Cells 0-5 SEEN, Ur Transition Epith Cell 0-5 SEEN, Urine Bacteria 0 SEEN, Urine Mucus 0 SEEN 02/03/18 06:45: POC Glucose 109 02/03/18 08:07: PT 16.4 H, INR 1.3, APTT 35.4 02/03/18 08:07: Lactic Acid 1.4 Current Medications Acetaminophen (Tylenol) 650 mg PO Q6H PRN PRN PRN Reason: Mild Pain (scale 0-3)/T>100.7 Al Hydroxide/Mg Hydroxide (Mylanta Ii) 30 ml PO Q6H PRN PRN PRN Reason: Gastric Burning Albuterol/Ipratropium (Duoneb) 3 ml INHALATION Q4H PRN PRN PRN Reason: sob Bisacodyl (Dulcolax) 10 mg RECTAL DAILY PRN PRN PRN Reason: Constipation Budesonide (Pulmicort Aerosol) 0.5 mg INHALATION BID.RT [facility] Last Admin: 02/03/18 07:00 Dose: Not Given Dextrose (D50w Syringe) 0 gm IV X1 PRN; Protocol PRN Reason: Hypoglycemia Glucagon () 1 mg IM .X1 PRN PRN Reason: Hypoglycemia Heparin Sodium (Porcine) (Heparin Na) 5,000 unit SC BID JAKI Pantoprazole Sodium 40 mg/ (Sodium Chloride) 110 mls @ 330 mls/hr IV Q24 [facility] Last Admin: 02/03/18 09:36 Dose: 330 mls/hr Sodium Chloride () 1,000 mls @ 150 mls/hr IV .Q6H40M [facility] Last Admin: 02/03/18 08:43 Dose: 150 mls/hr Azithromycin 500 mg/ Dextrose 255 mls @ 250 mls/hr IV Q24 [facility] Stop: 02/05/18 11:02 Last Admin: 02/03/18 09:56 Dose: 250 mls/hr Ceftriaxone Sodium (Rocephin) 1 gm in 50 mls @ 100 mls/hr IV Q24 [facility] Last Admin: 02/03/18 01:41 Dose: 100 mls/hr Insulin Aspart (Novolog Flexpen (Bkc)) 0 units SC ACHS JAKI PRN Reason: Protocol Last Admin: 02/03/18 06:46 Dose: Not Given Loratadine (Claritin) 10 mg PO DAILY PRN PRN Magnesium Hydroxide (Milk Of Magnesia) 30 ml PO DAILY PRN PRN PRN Reason: Constipation Morphine Sulfate () 1 mg IV Q4H PRN PRN PRN Reason: SEVERE PAIN (6-10/10) Last Admin: 02/03/18 08:39 Dose: 1 mg Nutritional Formula (Lactose Free) (Ensure Enlive) 120 ml PO 4X/DAY JAKI Ondansetron HCl (Zofran) 4 mg IV Q8H PRN PRN PRN Reason: Nausea Polyethylene Glycol (Miralax) 17 gm PO DAILY JAKI Psyllium Hydrophilic Mucilloid (Metamucil) 1 packet PO DAILY PRN PRN PRN Reason: CONSTIPATION Senna/Docusate Sodium (Senokot-S, Melvi-Colace) 2 tablet PO BID PRN PRN PRN Reason: constipation Sodium Chloride () 5 - 30 ml IV UD PRN PRN Reason: SALINE FLUSH Medical Necessity - Tobacco Use Smoking Status: Never smoker Assessment/Plan Active and Suspected Problems Abdominal pain (Acute) Ascites (Acute) Right lower lobe CAP (Acute) Acute kidney injury (Acute) 37 year old F with history of asthma, prior history of uterine CA s/p hysterectomy, recently diagnosed with right lower lobe community acquired pneumonia and asthma exacerbation admitted with intractable nausea, vomiting, abdominal pain. 1. Intractable nausea and vomiting, multifactorial in etiology, likely related to current YARED /newly diagnosed ascites, will continue to monitor and treat symptomatically. 2. Right upper quadrant pain secondary to hepatomegaly, LFTs are not remarkable ,unclear etiology, ultrasound showed echogenicity with no masses, hepatic profile and other workup for hepatomegaly in progress. 3. Newly found ascites, unclear etiology, going for abdominal paracentesis today. 4. Acute kidney injury likely prerenal, on IV fluids with slight improvement in creatinine, will get renal ultrasound to rule out post renal causes. 5. Right lower lobe community-acquired pneumonia likely secondary to gram-positive and atypical organisms, on IV ceftriaxone and Flagyl, will continue to monitor. 6. Chronic intermittent asthma, stable, no signs of acute exacerbation. 7. Recent diagnosis of uterine cancer status post complete hysterectomy and bilateral salpingo-cystectomy, will get records from previous facility. 8. DVT PPx - Heparin SC Code Visit Inpatient E&M: 87242 Subs Hosp L3
--- NOTE | 2018-02-03 11:42 | PN_ITS ---
Patient Problems: Active and Suspected Problems Abdominal pain (Acute) Ascites (Acute) Right lower lobe CAP (Acute) Acute kidney injury (Acute) Subjective: Patient was seen and examined. She complains of lower abdominal pain and nausea. She denied fever, chills, SOB, diarrhea or constipation. She is getting abdominal paracentesis done today. Objective: Physical Exam: General: Alert, Oriented x3, Cooperative, not pale, not jaundiced, obese HEENT: Atraumatic, PERRLA, EOMI, Normocephalic Oral: Very dry oral mucosa Neck: Supple Lungs: Diminished air entry, clear to auscultation Cardiovascular: Regular rate, Regular Rhythm, Normal S1, Normal S2, No murmurs Abdomen: Bowel Sounds Present, Soft, Hypoactive Bowel Sounds, Hepatomegaly, Tender - Very tender right upper quadrant. Obese anterior abdominal wall Extremities: Trace bilateral edema Skin: No rashes, No breakdown Musculoskeletal: No Tenderness to Palpation of Joints or Extremities Neurological: Cranial nerves II-XII grossly intact, Neuro grossly intact Psych/Mental Status: Normal Affect, Appropriate Vitals/I&O's: Vital Signs Temp Pulse Resp BP Pulse Ox 98.4 F 117 H 16 123/87 H 94 02/03/18 06:30 02/03/18 06:30 02/03/18 06:30 02/03/18 06:30 02/03/18 06:30 Oxygen Delivery Method Room Air Weight: 104 kg Intake and Output for Last 24 Hours 02/01/18 02/02/18 02/03/18 23:59 23:59 23:59 Intake Total 790 / 790 Balance 790 / 790 Microbiology Past 72 Hours 02/03/18 05:38 Urine, Clean Catch Streptococcus pneumoniae Antigen (M - Final 02/03/18 05:38 Urine, Clean Catch Legionella Antigen - Final Laboratory Results 02/03/18 00:52: POC Glucose 122 H 02/03/18 05:25: WBC 15.7 H, RBC 4.88, Hgb 10.8 L, Hct 34.1 L, MCV 69.9 L, MCH 22.1 L, MCHC 31.7 L, RDW 18.8 H, RDW Differential 47.9 H, Plt Count 293, MPV 8.7 , Immature Gran % (Auto) 0.400, Neut % (Auto) 85.9 H, Lymph % (Auto) 7.2 L, [place] % (Auto) 6.3, Eos % (Auto) 0.1, Baso % (Auto) 0.1, Absolute Neuts (auto) 13.5 H, Absolute Lymphs (auto) 1.13, Total Counted Not Reportable 02/03/18 05:25: Sodium 136, Potassium 4.8, Chloride 104, Carbon Dioxide 21.0, Anion Gap 11, BUN 47 H, Creatinine 3.85 H, Estim Creat Clear Calc 18.18, Est GFR (MDRD) Af Amer 17 L, Est GFR (MDRD) Non-Af 14 L, BUN/Creatinine Ratio 12.2, Glucose 102, Calcium 8.0 L, Total Bilirubin 0.70, Direct Bilirubin 0.20, AST 15 , ALT 7 L, Alkaline Phosphatase 51, Lactate Dehydrogenase 639 H, Total Protein 5.9 L, Albumin 1.8 L, Globulin 4.1 02/03/18 05:25: Hemoglobin A1c 6.0 02/03/18 05:25: Hepatitis A IgM Ab Pending, Hep Bs Antigen Pending, Hep B Core IgM Ab Pending, Hepatitis C Ab (EIA) Pending 02/03/18 05:25: Anti-Smooth Muscle Ab Pending 02/03/18 05:25: ROBERT Screen Pending, DIRK-1 Antibody Pending, SS-A/Ro IgG Antibody Pending, SS-B/La IgG Antibody Pending, Sm ([place]) Antibody Pending, FLUID PUMP OPERATOR Antibody Pending, Scl-70 Scleroderma Ab Pending, Double Strand DNA Ab Pending, Centromere B Antibody Pending 02/03/18 05:38: Urine Color Yellow, Urine Clarity Sl. Cloudy, Urine pH 5.0, Ur Specific [place] 1.020, Urine Protein 15 H, Urine Glucose (UA) Normal, Urine Ketones 5 H, Urine Occult Blood 250 H, Urine Nitrite Negative, Urine Bilirubin Negative, Urine Urobilinogen Normal, Ur Leukocyte Esterase 100 H, Urine RBC 50- 100 SEEN, Urine WBC 5-10 SEEN, Ur Squamous Epith Cells 0-5 SEEN, Ur Transition Epith Cell 0-5 SEEN, Urine Bacteria 0 SEEN, Urine Mucus 0 SEEN 02/03/18 06:45: POC Glucose 109 02/03/18 08:07: PT 16.4 H, INR 1.3, APTT 35.4 02/03/18 08:07: Lactic Acid 1.4 Current Medications Acetaminophen (Tylenol) 650 mg PO Q6H PRN PRN PRN Reason: Mild Pain (scale 0-3)/T>100.7 Al Hydroxide/Mg Hydroxide (Mylanta Ii) 30 ml PO Q6H PRN PRN PRN Reason: Gastric Burning Albuterol/Ipratropium (Duoneb) 3 ml INHALATION Q4H PRN PRN PRN Reason: sob Bisacodyl (Dulcolax) 10 mg RECTAL DAILY PRN PRN PRN Reason: Constipation Budesonide (Pulmicort Aerosol) 0.5 mg INHALATION BID.RT [facility] Last Admin: 02/03/18 07:00 Dose: Not Given Dextrose (D50w Syringe) 0 gm IV X1 PRN; Protocol PRN Reason: Hypoglycemia Glucagon () 1 mg IM .X1 PRN PRN Reason: Hypoglycemia Heparin Sodium (Porcine) (Heparin Na) 5,000 unit SC BID JAKI Pantoprazole Sodium 40 mg/ (Sodium Chloride) 110 mls @ 330 mls/hr IV Q24 [facility] Last Admin: 02/03/18 09:36 Dose: 330 mls/hr Sodium Chloride () 1,000 mls @ 150 mls/hr IV .Q6H40M [facility] Last Admin: 02/03/18 08:43 Dose: 150 mls/hr Azithromycin 500 mg/ Dextrose 255 mls @ 250 mls/hr IV Q24 [facility] Stop: 02/05/18 11:02 Last Admin: 02/03/18 09:56 Dose: 250 mls/hr Ceftriaxone Sodium (Rocephin) 1 gm in 50 mls @ 100 mls/hr IV Q24 [facility] Last Admin: 02/03/18 01:41 Dose: 100 mls/hr Insulin Aspart (Novolog Flexpen (Bkc)) 0 units SC ACHS JAKI PRN Reason: Protocol Last Admin: 02/03/18 06:46 Dose: Not Given Loratadine (Claritin) 10 mg PO DAILY PRN PRN Magnesium Hydroxide (Milk Of Magnesia) 30 ml PO DAILY PRN PRN PRN Reason: Constipation Morphine Sulfate () 1 mg IV Q4H PRN PRN PRN Reason: SEVERE PAIN (6-10/10) Last Admin: 02/03/18 08:39 Dose: 1 mg Nutritional Formula (Lactose Free) (Ensure Enlive) 120 ml PO 4X/DAY JAKI Ondansetron HCl (Zofran) 4 mg IV Q8H PRN PRN PRN Reason: Nausea Polyethylene Glycol (Miralax) 17 gm PO DAILY JAKI Psyllium Hydrophilic Mucilloid (Metamucil) 1 packet PO DAILY PRN PRN PRN Reason: CONSTIPATION Senna/Docusate Sodium (Senokot-S, Melvi-Colace) 2 tablet PO BID PRN PRN PRN Reason: constipation Sodium Chloride () 5 - 30 ml IV UD PRN PRN Reason: SALINE FLUSH Medical Necessity - Tobacco Use Smoking Status: Never smoker Assessment/Plan Active and Suspected Problems Abdominal pain (Acute) Ascites (Acute) Right lower lobe CAP (Acute) Acute kidney injury (Acute) 37 year old F with history of asthma, prior history of uterine CA s/p hysterectomy, recently diagnosed with right lower lobe community acquired pneumonia and asthma exacerbation admitted with intractable nausea, vomiting, abdominal pain. 1. Intractable nausea and vomiting, multifactorial in etiology, likely related to current YARED /newly diagnosed ascites, will continue to monitor and treat symptomatically. 2. Right upper quadrant pain secondary to hepatomegaly, LFTs are not remarkable ,unclear etiology, ultrasound showed echogenicity with no masses, hepatic profile and other workup for hepatomegaly in progress. 3. Newly found ascites, unclear etiology, going for abdominal paracentesis today. 4. Acute kidney injury likely prerenal, on IV fluids with slight improvement in creatinine, will get renal ultrasound to rule out post renal causes. 5. Right lower lobe community-acquired pneumonia likely secondary to gram- positive and atypical organisms, on IV ceftriaxone and Flagyl, will continue to monitor. 6. Chronic intermittent asthma, stable, no signs of acute exacerbation. 7. Recent diagnosis of uterine cancer status post complete hysterectomy and bilateral salpingo-cystectomy, will get records from previous facility. 8. DVT PPx - Heparin SC Code Visit Inpatient E&M: 82730 Subs Hosp L3
[2018-02-03 12:25] LABS: Bedside Glucose 100 mg/dL (70-110)
--- NOTE | 2018-02-03 12:45 | NURSING ---
rocephin not on unit at this time for pt administration
--- NOTE | 2018-02-03 13:28 | CT_ITS ---
STUDY: CT ABDOMEN AND PELVIS WITHOUT CONTRAST REASON FOR EXAM: Female, 37 years old. Abdominal pain and nausea x1 week RADIATION DOSAGE (If Supplied By Facility): CTDIvol = ( 23.15 ) mGy, DLP = ( 1255.34 ) mGycm TECHNIQUE: Transaxial images were obtained from the dome of the diaphragm to the symphysis pubis without oral contrast, and without intravenous contrast. Sagittal and coronal images were reconstructed. Individualized dose optimization techniques were used for this CT. COMPARISON: None. FINDINGS: The study is limited, being performed without oral and intravenous contrast. The visualized lung bases are unremarkable. The visualized portions of the heart are within normal limits. Normal liver. Normal gallbladder and extrahepatic biliary system. Normal spleen. Normal pancreas. There is a large amount of ascites in the abdomen and pelvis. Normal bilateral adrenal glands. Normal right kidney. Normal left kidney. Normal visualized stomach. The majority of small bowel is obscured by the large amount of ascites. There is a heterogeneous density of the lower abdomen/upper pelvis measuring approximately 12.9 x 10.1 x 11.5 cm there is an additional anterior left pelvic mass measuring 8.6 x 9.2 by 6.7 cm. The majority of the colon is obscured by ascites. The visualized colon appears of normal caliber. There is non-visualization of the appendix. Normal abdominal aorta. Normal inferior vena cava. There is diffuse enlargement of the left psoas muscle. There is a minimally filled urinary bladder. There is a soft tissue mass of the deep mid pelvis measuring 9.8 x 7.4 7.5 cm. There is subcutaneous edema of the abdominal wall fat suggestive of anasarca. Normal osseous structures. CT/Abdomen/Pelvis without Cont IMPRESSION: Limited study. Large amount of ascites in the abdomen and pelvis. Suspected abdominal and pelvic masses as detailed above. Diffuse enlargement of the left psoas muscle. Subcutaneous edema of the abdominal wall fat suggestive of anasarca. If clinically indicated, repeat CT with oral and intravenous contrast may be helpful for further evaluation. Electronically Signed: Alvin Hicks MD at 16:22 EDT , Service support ,
[2018-02-03] MEDS: Ondansetron 4 MG/2 ML Vial IV ×2 (13:45→22:02)
[2018-02-03] MEDS: 0.9% Normal Saline 1,000 ML 75 ML IV ×2 (13:48→22:06)
--- NOTE | 2018-02-03 13:57 | PCM.CONS.R ---
Consultation - Renal 02/03/18 PCP/ Referring MD: Requesting physician: [] Primary care physician: No Primary Care Phys Reason for Consultation:: YARED - History of Present Illness History of Present Illness: Chief Complaint: Abdominal pain, nausea and vomiting for 1 week The patient is a 37 year old obese F with history of asthma was recently seen in ER on 01/27/2018 for cough and shortness of breath for 2 weeks. She was diagnosed and treated with Levaquin and prednisone for RLL CAP and asthma exacerbation. She came to ER on 02/02 with intractable nausea, vomiting, RUQ abdominal pain since the weekend. Her serum creatinine was 1.03 on January 27 during her ER visit. Creatinine was 4.36 with current admission improved to 3.85 today with IV hydration. She noticed a drop in her urinary output. Denied any fever or chills. Denied any non-intentional weight loss. Her nausea and vomiting is improved some today. Serologies were sent along with hepatitis studies by primary service. She had a gallbladder ultrasound that showed echogenic liver with hepatomegaly at 19.5 cm without liver mass. She had gallbladder sludge with mild hydro in the right kidney. She had marked ascites. Kidney ultrasound was ordered. She complains of abdominal pain in the right upper quadrant, persistent, sharp and stabbing along with nausea and vomiting with bilious emesis. WBC was elevated at 18.9 improved to 15.7. Urinalysis showed high specific gravity at 1.020 moderate leukocyte esterase and RBCs. She had trace proteinuria. She denied any dysuria or hematuria she has profound hypoalbuminemia with albumin of 1.8. Her liver enzymes were within normal limits. She has a history of uterine cancer s/p hysterectomy in August 2017. She did not require any chemotherapy or radiation. - Allergies Allergies: Allergies Penicillins [PCN] Allergy (Verified 02/02/18 16:47) Hives - Current Medications Current Medications: Current Medications Acetaminophen (Tylenol) 650 mg PO Q6H PRN PRN PRN Reason: Mild Pain (scale 0-3)/T>100.7 Al Hydroxide/Mg Hydroxide (Mylanta Ii) 30 ml PO Q6H PRN PRN PRN Reason: Gastric Burning Albuterol/Ipratropium (Duoneb) 3 ml INHALATION Q4H PRN PRN PRN Reason: sob Bisacodyl (Dulcolax) 10 mg RECTAL DAILY PRN PRN PRN Reason: Constipation Budesonide (Pulmicort Aerosol) 0.5 mg INHALATION BID.RT [facility] Last Admin: 02/03/18 07:00 Dose: Not Given Dextrose (D50w Syringe) 0 gm IV X1 PRN; Protocol PRN Reason: Hypoglycemia Glucagon () 1 mg IM .X1 PRN PRN Reason: Hypoglycemia Heparin Sodium (Porcine) (Heparin Na) 5,000 unit SC BID [facility] Last Admin: 02/03/18 11:54 Dose: Not Given Pantoprazole Sodium 40 mg/ (Sodium Chloride) 110 mls @ 330 mls/hr IV Q24 [facility] Last Admin: 02/03/18 09:36 Dose: 330 mls/hr Azithromycin 500 mg/ Dextrose 255 mls @ 250 mls/hr IV Q24 [facility] Stop: 02/05/18 11:02 Last Admin: 02/03/18 09:56 Dose: 250 mls/hr Ceftriaxone Sodium (Rocephin) 1 gm in 50 mls @ 100 mls/hr IV Q24 [facility] Last Admin: 02/03/18 12:45 Dose: 100 mls/hr Sodium Chloride () 1,000 mls @ 75 mls/hr IV .[id number] [facility] Last Admin: 02/03/18 13:48 Dose: 75 mls/hr Insulin Aspart (Novolog Flexpen (Bkc)) 0 units SC ACHS [facility] PRN Reason: Protocol Last Admin: 02/03/18 11:53 Dose: Not Given Loratadine (Claritin) 10 mg PO DAILY PRN PRN Magnesium Hydroxide (Milk Of Magnesia) 30 ml PO DAILY PRN PRN PRN Reason: Constipation Morphine Sulfate () 1 mg IV Q4H PRN PRN PRN Reason: SEVERE PAIN (6-10/10) Last Admin: 02/03/18 12:40 Dose: 1 mg Nutritional Formula (Lactose Free) (Ensure Enlive) 120 ml PO 4X/DAY [facility] Last Admin: 02/03/18 13:20 Dose: Not Given Ondansetron HCl (Zofran) 4 mg IV Q8H PRN PRN PRN Reason: Nausea Last Admin: 02/03/18 13:45 Dose: 4 mg Polyethylene Glycol (Miralax) 17 gm PO DAILY [facility] Last Admin: 02/03/18 11:54 Dose: Not Given Psyllium Hydrophilic Mucilloid (Metamucil) 1 packet PO DAILY PRN PRN PRN Reason: CONSTIPATION Senna/Docusate Sodium (Senokot-S, Melvi-Colace) 2 tablet PO BID PRN PRN PRN Reason: constipation Sodium Chloride () 5 - 30 ml IV UD PRN PRN Reason: SALINE FLUSH - Past Medical History Past Medical History (Chronic Problems): Chronic Problems History of uterine cancer (Chronic) History of hysterectomy plus bilateral salpingo-oophorectomy August 2017 Asthma (Chronic) - Past Surgical History Surgical History: hysterectomy - August 2017, ankle surgery 6 years ago - Social History Marital Status: Single - Lives with fiyudy? and his family Smoking Status: Never smoker - Family History Maternal History Items: - - with liver failure from alcoholism Paternal History Items: Cancer - Lung Review of Systems Constitutional: Reports: Anorexia, Weakness, Weight Change - Intentional. Denies: Chills, Fever Eyes: Reports: Blurred vision HEENT: Denies: Sore Throat Cardiovascular: Reports: Edema. Denies: Chest Pain, Syncope Respiratory: Reports: Cough, Shortness of Breath - History from recent right lower lobe pneumonia Gastrointestinal: Reports: Abdominal Pain - Right upper quadrant, Diarrhea - For 2 days past weekend, Nausea, Vomiting - Bilious emesis. Denies: Hematemesis, Hematochezia Genitourinary: Denies: Dysuria, Frequency, Incontinence, Nocturia Musculoskeletal: Reports: - - No weakness Skin: Denies: Rash Neurological: Denies: Balance problems, Tremor, Seizures Psychiatric: Denies: Anxiety, Depression Hematologic/ Lymphatic: Denies: Anemia, Hx of blood clot Patient Problems: Active and Suspected Problems Abdominal pain (Acute) Ascites (Acute) Right lower lobe CAP (Acute) Acute kidney injury (Acute) - Physical Exam General: Alert, Oriented x3, Cooperative, - - Nauseated HEENT: PERRLA, EOMI, - - Wears corrective lenses Oral: Dry Mucosa Neck: Supple, No JVD Lungs: Clear to auscultation Abdomen: Bowel Sounds Present, Soft, Obese, Tender - Right upper quadrant, suprapubic area Extremities: No edema Skin: No rashes Musculoskeletal: No Muscle Wasting Lymphatic: Cervical Adenopathy - None Neurological: Cranial nerves II-XII grossly intact Psych/Mental Status: Normal Affect, Appropriate, Anxious, Alert and oriented to time, place, person, mood and affect Vital Signs Temp Pulse Resp BP Pulse Ox 97.9 F 120 H 20 H 132/89 H 94 02/03/18 12:30 02/03/18 12:30 02/03/18 12:30 02/03/18 12:30 02/03/18 12:30 Oxygen Delivery Method Room Air Weight: 104 kg Intake and Output for Last 24 Hours 02/01/18 02/02/18 02/03/18 23:59 23:59 23:59 Intake Total 1768 / 1768 Output Total 500 / 500 Balance 1268 / 1268 Microbiology Past 72 Hours 02/03/18 05:38 Streptococcus pneumoniae Antigen (M - Final Urine, Clean Catch 02/03/18 05:38 Legionella Antigen - Final Urine, Clean Catch Laboratory Tests Past 24 Hrs 02/03/18 02/03/18 02/03/18 05:25 05:25 05:25 WBC 15.7 H RBC 4.88 Hgb 10.8 L Hct 34.1 L MCV 69.9 L MCH 22.1 L MCHC 31.7 L RDW 18.8 H RDW Differential 47.9 H Plt Count 293 MPV 8.7 Immature Gran % (Auto) 0.400 Neut % (Auto) 85.9 H Lymph % (Auto) 7.2 L [place] % (Auto) 6.3 Eos % (Auto) 0.1 Baso % (Auto) 0.1 Absolute Neuts (auto) 13.5 H Absolute Lymphs (auto) 1.13 Total Counted Not Reportable PT INR APTT Sodium 136 Potassium 4.8 Chloride 104 Carbon Dioxide 21.0 Anion Gap 11 BUN 47 H Creatinine 3.85 H Estim Creat Clear Calc 18.18 Est GFR (MDRD) Af Amer 17 L Est GFR (MDRD) Non-Af 14 L BUN/Creatinine Ratio 12.2 Glucose 102 Hemoglobin A1c 6.0 Lactic Acid Calcium 8.0 L Total Bilirubin 0.70 Direct Bilirubin 0.20 AST 15 ALT 7 L Alkaline Phosphatase 51 Lactate Dehydrogenase 639 H Total Protein 5.9 L Albumin 1.8 L Globulin 4.1 Urine Color Urine Clarity Urine pH Ur Specific [place] Urine Protein Urine Glucose (UA) Urine Ketones Urine Occult Blood Urine Nitrite Urine Bilirubin Urine Urobilinogen Ur Leukocyte Esterase Urine RBC Urine WBC Ur Squamous Epith Cells Ur Transition Epith Cell Urine Bacteria Urine Mucus ROBERT Screen DIRK-1 Antibody SS-A/Ro IgG Antibody SS-B/La IgG Antibody Sm ([place]) Antibody FORECLOSURE SPECIALIST Antibody Scl-70 Scleroderma Ab Double Strand DNA Ab Centromere B Antibody Anti-Smooth Muscle Ab Hepatitis A IgM Ab Hep Bs Antigen Hep B Core IgM Ab Hepatitis C Ab (EIA) 02/03/18 02/03/18 02/03/18 05:25 05:25 05:25 WBC RBC Hgb Hct MCV MCH MCHC RDW RDW Differential Plt Count MPV Immature Gran % (Auto) Neut % (Auto) Lymph % (Auto) [place] % (Auto) Eos % (Auto) Baso % (Auto) Absolute Neuts (auto) Absolute Lymphs (auto) Total Counted PT INR APTT Sodium Potassium Chloride Carbon Dioxide Anion Gap BUN Creatinine Estim Creat Clear Calc Est GFR (MDRD) Af Amer Est GFR (MDRD) Non-Af BUN/Creatinine Ratio Glucose Hemoglobin A1c Lactic Acid Calcium Total Bilirubin Direct Bilirubin AST ALT Alkaline Phosphatase Lactate Dehydrogenase Total Protein Albumin Globulin Urine Color Urine Clarity Urine pH Ur Specific [place] Urine Protein Urine Glucose (UA) Urine Ketones Urine Occult Blood Urine Nitrite Urine Bilirubin Urine Urobilinogen Ur Leukocyte Esterase Urine RBC Urine WBC Ur Squamous Epith Cells Ur Transition Epith Cell Urine Bacteria Urine Mucus ROBERT Screen Pending DIRK-1 Antibody Pending SS-A/Ro IgG Antibody Pending SS-B/La IgG Antibody Pending Sm ([place]) Antibody Pending FORECLOSURE SPECIALIST Antibody Pending Scl-70 Scleroderma Ab Pending Double Strand DNA Ab Pending Centromere B Antibody Pending Anti-Smooth Muscle Ab Pending Hepatitis A IgM Ab Pending Hep Bs Antigen Pending Hep B Core IgM Ab Pending Hepatitis C Ab (EIA) Pending 02/03/18 02/03/18 02/03/18 05:38 08:07 08:07 WBC RBC Hgb Hct MCV MCH MCHC RDW RDW Differential Plt Count MPV Immature Gran % (Auto) Neut % (Auto) Lymph % (Auto) [place] % (Auto) Eos % (Auto) Baso % (Auto) Absolute Neuts (auto) Absolute Lymphs (auto) Total Counted PT 16.4 H INR 1.3 APTT 35.4 Sodium Potassium Chloride Carbon Dioxide Anion Gap BUN Creatinine Estim Creat Clear Calc Est GFR (MDRD) Af Amer Est GFR (MDRD) Non-Af BUN/Creatinine Ratio Glucose Hemoglobin A1c Lactic Acid 1.4 Calcium Total Bilirubin Direct Bilirubin AST ALT Alkaline Phosphatase Lactate Dehydrogenase Total Protein Albumin Globulin Urine Color Yellow Urine Clarity Sl. Cloudy Urine pH 5.0 Ur Specific [place] 1.020 Urine Protein 15 H Urine Glucose (UA) Normal Urine Ketones 5 H Urine Occult Blood 250 H Urine Nitrite Negative Urine Bilirubin Negative Urine Urobilinogen Normal Ur Leukocyte Esterase 100 H Urine RBC 50-100 SEEN Urine WBC 5-10 SEEN Ur Squamous Epith Cells 0-5 SEEN Ur Transition Epith Cell 0-5 SEEN Urine Bacteria 0 SEEN Urine Mucus 0 SEEN ROBERT Screen DIRK-1 Antibody SS-A/Ro IgG Antibody SS-B/La IgG Antibody Sm ([place]) Antibody FORECLOSURE SPECIALIST Antibody Scl-70 Scleroderma Ab Double Strand DNA Ab Centromere B Antibody Anti-Smooth Muscle Ab Hepatitis A IgM Ab Hep Bs Antigen Hep B Core IgM Ab Hepatitis C Ab (EIA) POC Glucose 02/03/18 02/03/18 02/03/18 11:48 06:45 00:52 POC Glucose 100 109 122 H Clinical Impression(s) from Imaging Studies Acute Abdomen Series 02/02/18 17:57 IMPRESSION: Persistent density in the medial right lung base consistent with atelectasis or infiltrate. No evidence of obstruction. Electronically Signed: Hai Hermosillo MD at 19:08 EDT , Service support , Gallbladder Ultrasound 02/02/18 20:47 IMPRESSION: Marked ascites. Hepatomegaly with a heterogeneous liver but no gross focal mass. Sludge in the gallbladder with a thickened wall. Electronically Signed: Hai Hermosillo MD at 21:40 EDT , Service support , Assessment/Plan Active and Suspected Problems Abdominal pain (Acute) Ascites (Acute) Right lower lobe CAP (Acute) Acute kidney injury (Acute) 1. Acute kidney injury likely due to dehydration, nausea vomiting. Patient creatinine 1.03 on January 27 increased to 4.36 on admission to 3.85 today with IV hydration. Continue with IV fluids. Check urine sodium and creatinine. 2. Hepatomegaly with echogenic liver, hypoalbuminemia. Denied alcohol use. Liver enzymes normal. Hepatitis studies sent. She has ascites on ultrasound of the abdomen. Check urine protein creatinine ratio. 3. Mild hydronephrosis of right kidney incidentally found on right upper quadrant abdominal ultrasound. Follow-up with kidney ultrasound. History of uterine cancer with hysterectomy. Rule out objective nephropathy. 4. History of uterine cancer status post hysterectomy in August 2017. Evaluate for malignant ascites. 5. Morbid obesity. 6. Intractable nausea and vomiting. Continue with IV fluids. 7. Leukocytosis on iv antbx, await urine c/s. Recent RLL CAP/
--- NOTE | 2018-02-03 14:03 | CON.PCM_ITS ---
Consultation - Renal 02/03/18 PCP/ Referring MD: Requesting physician: [] Primary care physician: No Primary Care Phys Reason for Consultation:: YARED - History of Present Illness History of Present Illness: Chief Complaint: Abdominal pain, nausea and vomiting for 1 week The patient is a 37 year old obese F with history of asthma was recently seen in ER on 01/27/2018 for cough and shortness of breath for 2 weeks. She was diagnosed and treated with Levaquin and prednisone for RLL CAP and asthma exacerbation. She came to ER on 02/02 with intractable nausea, vomiting, RUQ abdominal pain since the weekend. Her serum creatinine was 1.03 on January 27 during her ER visit. Creatinine was 4.36 with current admission improved to 3.85 today with IV hydration. She noticed a drop in her urinary output. Denied any fever or chills. Denied any non-intentional weight loss. Her nausea and vomiting is improved some today. Serologies were sent along with hepatitis studies by primary service. She had a gallbladder ultrasound that showed echogenic liver with hepatomegaly at 19.5 cm without liver mass. She had gallbladder sludge with mild hydro in the right kidney. She had marked ascites. Kidney ultrasound was ordered. She complains of abdominal pain in the right upper quadrant, persistent, sharp and stabbing along with nausea and vomiting with bilious emesis. WBC was elevated at 18.9 improved to 15.7. Urinalysis showed high specific gravity at 1.020 moderate leukocyte esterase and RBCs. She had trace proteinuria. She denied any dysuria or hematuria she has profound hypoalbuminemia with albumin of 1.8. Her liver enzymes were within normal limits. She has a history of uterine cancer s/p hysterectomy in August 2017. She did not require any chemotherapy or radiation. - Allergies Allergies: Allergies Penicillins [PCN] Allergy (Verified 02/02/18 16:47) Hives - Current Medications Current Medications: Current Medications Acetaminophen (Tylenol) 650 mg PO Q6H PRN PRN PRN Reason: Mild Pain (scale 0-3)/T>100.7 Al Hydroxide/Mg Hydroxide (Mylanta Ii) 30 ml PO Q6H PRN PRN PRN Reason: Gastric Burning Albuterol/Ipratropium (Duoneb) 3 ml INHALATION Q4H PRN PRN PRN Reason: sob Bisacodyl (Dulcolax) 10 mg RECTAL DAILY PRN PRN PRN Reason: Constipation Budesonide (Pulmicort Aerosol) 0.5 mg INHALATION BID.RT [facility] Last Admin: 02/03/18 07:00 Dose: Not Given Dextrose (D50w Syringe) 0 gm IV X1 PRN; Protocol PRN Reason: Hypoglycemia Glucagon () 1 mg IM .X1 PRN PRN Reason: Hypoglycemia Heparin Sodium (Porcine) (Heparin Na) 5,000 unit SC BID [facility] Last Admin: 02/03/18 11:54 Dose: Not Given Pantoprazole Sodium 40 mg/ (Sodium Chloride) 110 mls @ 330 mls/hr IV Q24 [facility] Last Admin: 02/03/18 09:36 Dose: 330 mls/hr Azithromycin 500 mg/ Dextrose 255 mls @ 250 mls/hr IV Q24 [facility] Stop: 02/05/18 11:02 Last Admin: 02/03/18 09:56 Dose: 250 mls/hr Ceftriaxone Sodium (Rocephin) 1 gm in 50 mls @ 100 mls/hr IV Q24 [facility] Last Admin: 02/03/18 12:45 Dose: 100 mls/hr Sodium Chloride () 1,000 mls @ 75 mls/hr IV .[id number] [facility] Last Admin: 02/03/18 13:48 Dose: 75 mls/hr Insulin Aspart (Novolog Flexpen (Bkc)) 0 units SC ACHS [facility] PRN Reason: Protocol Last Admin: 02/03/18 11:53 Dose: Not Given Loratadine (Claritin) 10 mg PO DAILY PRN PRN Magnesium Hydroxide (Milk Of Magnesia) 30 ml PO DAILY PRN PRN PRN Reason: Constipation Morphine Sulfate () 1 mg IV Q4H PRN PRN PRN Reason: SEVERE PAIN (6-10/10) Last Admin: 02/03/18 12:40 Dose: 1 mg Nutritional Formula (Lactose Free) (Ensure Enlive) 120 ml PO 4X/DAY [facility] Last Admin: 02/03/18 13:20 Dose: Not Given Ondansetron HCl (Zofran) 4 mg IV Q8H PRN PRN PRN Reason: Nausea Last Admin: 02/03/18 13:45 Dose: 4 mg Polyethylene Glycol (Miralax) 17 gm PO DAILY [facility] Last Admin: 02/03/18 11:54 Dose: Not Given Psyllium Hydrophilic Mucilloid (Metamucil) 1 packet PO DAILY PRN PRN PRN Reason: CONSTIPATION Senna/Docusate Sodium (Senokot-S, Melvi-Colace) 2 tablet PO BID PRN PRN PRN Reason: constipation Sodium Chloride () 5 - 30 ml IV UD PRN PRN Reason: SALINE FLUSH - Past Medical History Past Medical History (Chronic Problems): Chronic Problems History of uterine cancer (Chronic) History of hysterectomy plus bilateral salpingo-oophorectomy August 2017 Asthma (Chronic) - Past Surgical History Surgical History: hysterectomy - August 2017, ankle surgery 6 years ago - Social History Marital Status: Single - Lives with fiyudy? and his family Smoking Status: Never smoker - Family History Maternal History Items: - - with liver failure from alcoholism Paternal History Items: Cancer - Lung Review of Systems Constitutional: Reports: Anorexia, Weakness, Weight Change - Intentional. Denies: Chills, Fever Eyes: Reports: Blurred vision HEENT: Denies: Sore Throat Cardiovascular: Reports: Edema. Denies: Chest Pain, Syncope Respiratory: Reports: Cough, Shortness of Breath - History from recent right lower lobe pneumonia Gastrointestinal: Reports: Abdominal Pain - Right upper quadrant, Diarrhea - For 2 days past weekend, Nausea, Vomiting - Bilious emesis. Denies: Hematemesis , Hematochezia Genitourinary: Denies: Dysuria, Frequency, Incontinence, Nocturia Musculoskeletal: Reports: - - No weakness Skin: Denies: Rash Neurological: Denies: Balance problems, Tremor, Seizures Psychiatric: Denies: Anxiety, Depression Hematologic/ Lymphatic: Denies: Anemia, Hx of blood clot Patient Problems: Active and Suspected Problems Abdominal pain (Acute) Ascites (Acute) Right lower lobe CAP (Acute) Acute kidney injury (Acute) - Physical Exam General: Alert, Oriented x3, Cooperative, - - Nauseated HEENT: PERRLA, EOMI, - - Wears corrective lenses Oral: Dry Mucosa Neck: Supple, No JVD Lungs: Clear to auscultation Abdomen: Bowel Sounds Present, Soft, Obese, Tender - Right upper quadrant, suprapubic area Extremities: No edema Skin: No rashes Musculoskeletal: No Muscle Wasting Lymphatic: Cervical Adenopathy - None Neurological: Cranial nerves II-XII grossly intact Psych/Mental Status: Normal Affect, Appropriate, Anxious, Alert and oriented to time, place, person, mood and affect Vital Signs Temp Pulse Resp BP Pulse Ox 97.9 F 120 H 20 H 132/89 H 94 02/03/18 12:30 02/03/18 12:30 02/03/18 12:30 02/03/18 12:30 02/03/18 12:30 Oxygen Delivery Method Room Air Weight: 104 kg Intake and Output for Last 24 Hours 02/01/18 02/02/18 02/03/18 23:59 23:59 23:59 Intake Total 1768 / 1768 Output Total 500 / 500 Balance 1268 / 1268 Microbiology Past 72 Hours 02/03/18 05:38 Streptococcus pneumoniae Antigen (M - Final Urine, Clean Catch 02/03/18 05:38 Legionella Antigen - Final Urine, Clean Catch Laboratory Tests Past 24 Hrs 02/03/18 02/03/18 02/03/18 05:25 05:25 05:25 WBC 15.7 H RBC 4.88 Hgb 10.8 L Hct 34.1 L MCV 69.9 L MCH 22.1 L MCHC 31.7 L RDW 18.8 H RDW Differential 47.9 H Plt Count 293 MPV 8.7 Immature Gran % (Auto) 0.400 Neut % (Auto) 85.9 H Lymph % (Auto) 7.2 L [place] % (Auto) 6.3 Eos % (Auto) 0.1 Baso % (Auto) 0.1 Absolute Neuts (auto) 13.5 H Absolute Lymphs (auto) 1.13 Total Counted Not Reportable PT INR APTT Sodium 136 Potassium 4.8 Chloride 104 Carbon Dioxide 21.0 Anion Gap 11 BUN 47 H Creatinine 3.85 H Estim Creat Clear Calc 18.18 Est GFR (MDRD) Af Amer 17 L Est GFR (MDRD) Non-Af 14 L BUN/Creatinine Ratio 12.2 Glucose 102 Hemoglobin A1c 6.0 Lactic Acid Calcium 8.0 L Total Bilirubin 0.70 Direct Bilirubin 0.20 AST 15 ALT 7 L Alkaline Phosphatase 51 Lactate Dehydrogenase 639 H Total Protein 5.9 L Albumin 1.8 L Globulin 4.1 Urine Color Urine Clarity Urine pH Ur Specific [place] Urine Protein Urine Glucose (UA) Urine Ketones Urine Occult Blood Urine Nitrite Urine Bilirubin Urine Urobilinogen Ur Leukocyte Esterase Urine RBC Urine WBC Ur Squamous Epith Cells Ur Transition Epith Cell Urine Bacteria Urine Mucus ROBERT Screen DIRK-1 Antibody SS-A/Ro IgG Antibody SS-B/La IgG Antibody Sm ([place]) Antibody BEE BREEDER Antibody Scl-70 Scleroderma Ab Double Strand DNA Ab Centromere B Antibody Anti-Smooth Muscle Ab Hepatitis A IgM Ab Hep Bs Antigen Hep B Core IgM Ab Hepatitis C Ab (EIA) 02/03/18 02/03/18 02/03/18 05:25 05:25 05:25 WBC RBC Hgb Hct MCV MCH MCHC RDW RDW Differential Plt Count MPV Immature Gran % (Auto) Neut % (Auto) Lymph % (Auto) [place] % (Auto) Eos % (Auto) Baso % (Auto) Absolute Neuts (auto) Absolute Lymphs (auto) Total Counted PT INR APTT Sodium Potassium Chloride Carbon Dioxide Anion Gap BUN Creatinine Estim Creat Clear Calc Est GFR (MDRD) Af Amer Est GFR (MDRD) Non-Af BUN/Creatinine Ratio Glucose Hemoglobin A1c Lactic Acid Calcium Total Bilirubin Direct Bilirubin AST ALT Alkaline Phosphatase Lactate Dehydrogenase Total Protein Albumin Globulin Urine Color Urine Clarity Urine pH Ur Specific [place] Urine Protein Urine Glucose (UA) Urine Ketones Urine Occult Blood Urine Nitrite Urine Bilirubin Urine Urobilinogen Ur Leukocyte Esterase Urine RBC Urine WBC Ur Squamous Epith Cells Ur Transition Epith Cell Urine Bacteria Urine Mucus ROBERT Screen Pending DIRK-1 Antibody Pending SS-A/Ro IgG Antibody Pending SS-B/La IgG Antibody Pending Sm ([place]) Antibody Pending BEE BREEDER Antibody Pending Scl-70 Scleroderma Ab Pending Double Strand DNA Ab Pending Centromere B Antibody Pending Anti-Smooth Muscle Ab Pending Hepatitis A IgM Ab Pending Hep Bs Antigen Pending Hep B Core IgM Ab Pending Hepatitis C Ab (EIA) Pending 02/03/18 02/03/18 02/03/18 05:38 08:07 08:07 WBC RBC Hgb Hct MCV MCH MCHC RDW RDW Differential Plt Count MPV Immature Gran % (Auto) Neut % (Auto) Lymph % (Auto) [place] % (Auto) Eos % (Auto) Baso % (Auto) Absolute Neuts (auto) Absolute Lymphs (auto) Total Counted PT 16.4 H INR 1.3 APTT 35.4 Sodium Potassium Chloride Carbon Dioxide Anion Gap BUN Creatinine Estim Creat Clear Calc Est GFR (MDRD) Af Amer Est GFR (MDRD) Non-Af BUN/Creatinine Ratio Glucose Hemoglobin A1c Lactic Acid 1.4 Calcium Total Bilirubin Direct Bilirubin AST ALT Alkaline Phosphatase Lactate Dehydrogenase Total Protein Albumin Globulin Urine Color Yellow Urine Clarity Sl. Cloudy Urine pH 5.0 Ur Specific [place] 1.020 Urine Protein 15 H Urine Glucose (UA) Normal Urine Ketones 5 H Urine Occult Blood 250 H Urine Nitrite Negative Urine Bilirubin Negative Urine Urobilinogen Normal Ur Leukocyte Esterase 100 H Urine RBC 50-100 SEEN Urine WBC 5-10 SEEN Ur Squamous Epith Cells 0-5 SEEN Ur Transition Epith Cell 0-5 SEEN Urine Bacteria 0 SEEN Urine Mucus 0 SEEN ROBERT Screen DIRK-1 Antibody SS-A/Ro IgG Antibody SS-B/La IgG Antibody Sm ([place]) Antibody BEE BREEDER Antibody Scl-70 Scleroderma Ab Double Strand DNA Ab Centromere B Antibody Anti-Smooth Muscle Ab Hepatitis A IgM Ab Hep Bs Antigen Hep B Core IgM Ab Hepatitis C Ab (EIA) POC Glucose 02/03/18 02/03/18 02/03/18 11:48 06:45 00:52 POC Glucose 100 109 122 H Clinical Impression(s) from Imaging Studies Acute Abdomen Series 02/02/18 17:57 IMPRESSION: Persistent density in the medial right lung base consistent with atelectasis or infiltrate. No evidence of obstruction. Electronically Signed: Hai Hermosillo MD at 19:08 EDT , Service support , Gallbladder Ultrasound 02/02/18 20:47 IMPRESSION: Marked ascites. Hepatomegaly with a heterogeneous liver but no gross focal mass. Sludge in the gallbladder with a thickened wall. Electronically Signed: Hai Hermosillo MD at 21:40 EDT , Service support , Assessment/Plan Active and Suspected Problems Abdominal pain (Acute) Ascites (Acute) Right lower lobe CAP (Acute) Acute kidney injury (Acute) 1. Acute kidney injury likely due to dehydration, nausea vomiting. Patient creatinine 1.03 on January 27 increased to 4.36 on admission to 3.85 today with IV hydration. Continue with IV fluids. Check urine sodium and creatinine. 2. Hepatomegaly with echogenic liver, hypoalbuminemia. Denied alcohol use. Liver enzymes normal. Hepatitis studies sent. She has ascites on ultrasound of the abdomen. Check urine protein creatinine ratio. 3. Mild hydronephrosis of right kidney incidentally found on right upper quadrant abdominal ultrasound. Follow-up with kidney ultrasound. History of uterine cancer with hysterectomy. Rule out objective nephropathy. 4. History of uterine cancer status post hysterectomy in August 2017. Evaluate for malignant ascites. 5. Morbid obesity. 6. Intractable nausea and vomiting. Continue with IV fluids. 7. Leukocytosis on iv antbx, await urine c/s. Recent RLL CAP/
--- NOTE | 2018-02-03 15:29 | FLU_PTH ---
PATIENT: Cynthia Rivas LOC: MS2 U#:[id number] AGE/SX: 37/F ROOM: [id number] RE02/03/[address]: Dr. Malachi Ren DO : 1980 BED: 1 DIS: 02/05/2018 SPEC #: [id number] RECD: 02/04/18 08:38 STATUS: SALINA LILI #: [id number] IMER: 02/03/18 15:[address]: Michaelle Ashby DEPT: CYTOLOGY RECD BY: Christ Christopher ENTERED: 02/04/18 08:39 SP TYPE: Fluid OTHR DR: DO Dr. Moreno Hawthorne MD No Primary Care Phys Tissues: PARACENTESIS FLUID Procedures: Pap Stain (control) Special Stain Group II Surgery Specimen Level IV Cell Block Cytospin Fluid HEADER OPERATION: Ultrasound-guided paracentesis PRE-OP DIAGNOSIS: Intractable nausea and vomiting TISSUE SUBMITTED: Paracentesis fluid for cytology DIAGNOSIS CYTOLOGY Paracentesis fluid for cytology (cytospin and cell block): Negative for malignant cells. SJ:andres 02/07/[address] Moreno from [facility], the patient has history of uterine sarcoma. This case was discussed with Dr. Moreno on 02/07/18. Clinical correlation and appropriate follow up are necessary. This case has been reviewed in consultation with Dr. Lynch who concurs with the above diagnosis. CYTOLOGY STUDY Slides are reviewed. The specimen is bloody and consists of reactive and nonreactive mesothelial cells, macrophages and inflammatory cells. CYTOLOGY GROSS Received is 44 ml of red, cloudy fluid labeled with the patient's name and and designated per the requisition as paracentesis. Submitted for cytology preparation including cell block. / AM:andres 02/04/18 TC:5 CPT: 86397, 02631
[2018-02-03 15:40] LABS: Cytology, Body Fluid / CSF SEE PATHOLOGY REPORT
[2018-02-03 16:09] LABS: White Blood Count/Body Fluid 0.294 10^3/uL
[2018-02-03 16:12] LABS: Appearance/Body Fluid SL CLDY; Color/Body Fluid RED
[2018-02-03 16:20] LABS: Protein, Body Fluid 3.4 g/dL (Not Establ.)
[2018-02-03] MEDS: 0.9% NaCl Peripheral Flush Adult/Peds IV (16:39)
[2018-02-03 16:51] LABS: LDH,Body Fluid 1221 Units/l (Not Establ.)
[2018-02-03 16:56] LABS: Specific Gravity, Body Fluid 1.021
[2018-02-03 17:10] LABS: Bedside Glucose 76 mg/dL (70-110)
[2018-02-03 17:40] LABS: Urine Sodium 41 mmol/L (Not Establ.)
[2018-02-03 17:52] LABS: Protein, Urine (Random) 21.4 mg/dL (<11.9)
[2018-02-03 18:53] LABS: Body Fluid QC Type(s) BF2Q
[2018-02-03 18:54] LABS: Appearance/Body Fluid SL CLDY; Auto B Fluid Analyzer BKGD Ct COUNTS W/IN LIMITS (W/IN LIMITS); Body Fluid QC Type(s) BF2Q; Color/Body Fluid RED
[2018-02-03 19:56] LABS: Pathologist Comment/Body Fluid May follow
[2018-02-03 19:57] LABS: Neutrophil (Segs) 31 %
[2018-02-03 19:58] LABS: Lymphocytes 31 %; Monocytes 32 %
[2018-02-03 19:59] LABS: Mesothelial Cells 6 %
[2018-02-03] MEDS: Heparin Injection (Vial) 5,000 UNIT/ML VIAL 5000 UNIT SC (22:00)
[2018-02-03 22:06] LABS: Bedside Glucose 98 mg/dL (70-110)
[2018-02-03] MEDS: Nystatin Powder 15gm Bottle 1 APPLIC TOPICAL (22:14)
[2018-02-03] MEDS: Metoprolol Tartrate 25 MG Tablet 12.5 MG PO (23:34)
[2018-02-04] VITALS (14 sets, daily range): BP systolic 107–137; BP diastolic 70–86; PULSE 110–127; RESP 16–22; TEMP 36.6–36.8; O2SAT 94–96
[2018-02-04] MEDS: Morphine 2 MG/ML Syringe 1 MG IV (01:26)
[2018-02-04 01:31] LABS: Bedside Glucose 113 mg/dL (70-110)
[2018-02-04] MEDS: Morphine 2 MG/ML Syringe IV (02:48)
[2018-02-04] MEDS: Ondansetron 4 MG/2 ML Vial IV ×3 (02:50→14:30)
[2018-02-04 03:08] LABS: HEPATITIS B SURFACE AG Negative (Negative); Hepatitis A IgM Antibody Negative (Negative); Hepatitis B Core AB IgM Negative (Negative)
[2018-02-04] MEDS: Loratadine 10 MG Tablet PO (04:14)
[2018-02-04] MEDS: Nystatin Powder 15gm Bottle 1 APPLIC TOPICAL ×2 (05:29→14:22)
[2018-02-04 06:11] LABS: Absolute Lymphocyte Count 1.08 X10^3/ul (0.83-4.51); Absolute Neutrophil Count 10.3 X10^3/uL (2.0-7.7); Basophil# 0.01 X10^3/uL; Basophil% 0.1 % (0-1); Eosinophil# 0.03 X10^3/uL; Eosinophils% 0.2 % (0-5); Hematocrit 32.3 % (37-47); Hemoglobin 10.1 g/dl (12.0-15.0); Lymphocyte # 1.08 X10^3/ul (4.0); Lymphocyte % 8.6 % (19-41); Mean Corp Hgb Conc 31.3 g/gl (32-36); Mean Corpuscular Hgb 22.2 pg (27.0-32.0); Mean Corpuscular Volume 71.1 fL (81-99); Mean Platelet Vol. 8.9 fl (6.2-12.0); Monocyte# 1.01 X10^3/uL; Monocyte% 8.1 % (0-10); Neutrophil # 10.31 X10^3/uL (2.7-7.7); Neutrophil % 82.6 % (47-70); Platelet Count 273 K/mm3 (150-450); RBC Distribution Width CV 18.8 % (11.6-14.6); RBC Distribution Width SD 48.7 fl (35.1-43.9); Red Blood Count 4.54 M/mm3 (4.2-5.4); White Blood Count 12.5 K/mm3 (4.4-11.0)
[2018-02-04 06:14] LABS: POSITIVE COUNT NO; POSITIVE DIFFERENTIAL NO; POSITIVE MORPHOLOGY NO
[2018-02-04 06:43] LABS: BUN 47 mg/dL (7-18); Glucose 98 mg/dL (74-106)
[2018-02-04 06:44] LABS: Anion Gap 10 (5-15); BUN/Creat Ratio 15.2 RATIO (10-20); Calcium,Total 8.3 mg/dL (8.5-10.1); Chloride 103 mmol/L (98-107); EST Glomerular Filtration Rate 18 mL/min (>60); Est Glom Filt Rate - Afr Amer 22 mL/min (>60); Estimated Creatinine Clearance 22.58 ml/min; Magnesium 1.7 mg/dL (1.6-2.6); Potassium 4.4 mmol/L (3.5-5.1); Sodium Level 138 mmol/L (136-145)
[2018-02-04 06:51] LABS: Bedside Glucose 105 mg/dL (70-110)
--- NOTE | 2018-02-04 08:10 | PN_ITS ---
Patient Problems: Active and Suspected Problems Abdominal pain (Acute) Ascites (Acute) Right lower lobe CAP (Acute) Acute kidney injury (Acute) Subjective: Patient seen and examined. Complains of no abdominal pain. Had Glez catheter placed yesterday for strict I's and O's. Right upper quadrant pain is much improved. Denies any dizziness or palpitation. Been tachycardic the whole day and night, started on low-dose Lopressor by the night doctor. Denies any fever or chills. Urine cultures are still pending. Objective: Physical Exam: General: Alert, Oriented x3, Cooperative, not pale, not jaundiced, obese HEENT: Atraumatic, PERRLA, EOMI, Normocephalic Oral: Very dry oral mucosa Neck: Supple Lungs: Diminished air entry, clear to auscultation Cardiovascular: Regular rate, Regular Rhythm, Normal S1, Normal S2, No murmurs Abdomen: Bowel Sounds Present, Soft, Hypoactive Bowel Sounds, Hepatomegaly, Tender - Very tender right upper quadrant. Obese anterior abdominal wall Extremities: Trace bilateral edema Skin: No rashes, No breakdown Musculoskeletal: No Tenderness to Palpation of Joints or Extremities Neurological: Cranial nerves II-XII grossly intact, Neuro grossly intact Psych/Mental Status: Normal Affect, Appropriate Vitals/I&O's: Vital Signs Temp Pulse Resp BP Pulse Ox 98.2 F 117 H 16 121/84 H 96 02/04/18 03:00 02/04/18 03:19 02/04/18 03:19 02/04/18 03:00 02/04/18 03:19 Oxygen Delivery Method Room Air Weight: 104 kg Intake and Output for Last 24 Hours 02/02/18 02/03/18 02/04/18 23:59 23:59 23:59 Intake Total 3001 / 3001 835 / 835 Output Total 800 / 800 325 / 325 Balance 2201 / 2201 510 / 510 Microbiology Past 72 Hours 02/03/18 05:38 Urine, Clean Catch Streptococcus pneumoniae Antigen (M - Final 02/03/18 05:38 Urine, Clean Catch Legionella Antigen - Final Laboratory Results 02/03/18 08:07: PT 16.4 H, INR 1.3, APTT 35.4 02/03/18 08:07: Lactic Acid 1.4 02/03/18 11:48: POC Glucose 100 02/03/18 15:00: Fluid Amylase Pending 02/03/18 15:00: Fluid Glucose 87 H, Fluid LDH 1221 02/03/18 15:00: Fluid Total Protein 3.4 02/03/18 15:00: Miscellaneous Cytology Pending 02/03/18 15:00: Miscellaneous Cytology Pending 02/03/18 15:00: Fluid Color RED, Fluid Appearance SL CLDY, Fluid RBC [id number] 02/03/18 15:00: Fluid Color RED, Fluid Appearance SL CLDY, Fluid Specific Grav 1.021, Fluid WBC 0.294 02/03/18 15:00: Fluid Source Cancelled, Fluid Color Cancelled, Fluid Appearance Cancelled, Fluid WBC Cancelled, Fluid RBC Cancelled, Fluid Tot Cell Count Cancelled, Fld Polynuclear WBCs # Cancelled, Fld Polynuclear WBCs % Cancelled, Fluid Mononuclear WBCs Cancelled, Fld Mononuclear WBCs % Cancelled, Fluid Neutrophils 31, Fluid Lymphocytes 31, Fluid Monocytes 32, Fld Mesothelial Cells 6, Fl Pathologist Comment May follow, Fluid Comment 2 Cancelled 02/03/18 16:50: Urine Creatinine 119.00 02/03/18 16:50: Ur Random Sodium 41 02/03/18 16:50: U Random Total Protein 21.4 H 02/03/18 17:05: POC Glucose 76 02/03/18 22:02: POC Glucose 98 02/04/18 01:25: POC Glucose 113 H 02/04/18 05:25: WBC 12.5 H, RBC 4.54, Hgb 10.1 L, Hct 32.3 L, MCV 71.1 L, MCH 22.2 L, MCHC 31.3 L, RDW 18.8 H, RDW Differential 48.7 H, Plt Count 273, MPV 8.9 , Immature Gran % (Auto) 0.400, Neut % (Auto) 82.6 H, Lymph % (Auto) 8.6 L, [place] % (Auto) 8.1, Eos % (Auto) 0.2, Baso % (Auto) 0.1, Absolute Neuts (auto) 10.3 H, Absolute Lymphs (auto) 1.08, Total Counted Not Reportable 02/04/18 05:25: Sodium 138, Potassium 4.4, Chloride 103, Carbon Dioxide 25.0, Anion Gap 10, BUN 47 H, Creatinine 3.10 H, Estim Creat Clear Calc 22.58, Est GFR (MDRD) Af Amer 22 L, Est GFR (MDRD) Non-Af 18 L, BUN/Creatinine Ratio 15.2, Glucose 98, Calcium 8.3 L, Magnesium 1.7 02/04/18 06:39: POC Glucose 105 Current Medications Acetaminophen (Tylenol) 650 mg PO Q6H PRN PRN PRN Reason: Mild Pain (scale 0-3)/T>100.7 Al Hydroxide/Mg Hydroxide (Mylanta Ii) 30 ml PO Q6H PRN PRN PRN Reason: Gastric Burning Albuterol/Ipratropium (Duoneb) 3 ml INHALATION Q4H PRN PRN PRN Reason: sob Bisacodyl (Dulcolax) 10 mg RECTAL DAILY PRN PRN PRN Reason: Constipation Dextrose (D50w Syringe) 0 gm IV X1 PRN; Protocol PRN Reason: Hypoglycemia Glucagon () 1 mg IM .X1 PRN PRN Reason: Hypoglycemia Heparin Sodium (Porcine) (Heparin Na) 5,000 unit SC BID [facility] Last Admin: 02/03/18 22:00 Dose: 5,000 u Hydromorphone HCl (Dilaudid Inj) 1 mg IV Q3H PRN PRN PRN Reason: SEVERE PAIN (6-10/10) Pantoprazole Sodium 40 mg/ (Sodium Chloride) 110 mls @ 330 mls/hr IV Q24 [facility] Last Admin: 02/03/18 09:36 Dose: 330 mls/hr Azithromycin 500 mg/ Dextrose 255 mls @ 250 mls/hr IV Q24 [facility] Stop: 02/05/18 11:02 Last Admin: 02/03/18 09:56 Dose: 250 mls/hr Ceftriaxone Sodium (Rocephin) 1 gm in 50 mls @ 100 mls/hr IV Q24 [facility] Last Admin: 02/03/18 12:45 Dose: 100 mls/hr Sodium Chloride () 1,000 mls @ 100 mls/hr IV .Q10H [facility] Magnesium Sulfate 2 gm/ Sodium (Chloride) 104 mls @ 52 mls/hr IV X1 [facility] Stop: 02/04/18 10:08 Insulin Aspart (Novolog Flexpen (Bkc)) 0 units SC ACHS [facility] PRN Reason: Protocol Last Admin: 02/04/18 06:58 Dose: Not Given Loratadine (Claritin) 10 mg PO DAILY PRN PRN Last Admin: 02/04/18 04:14 Dose: 10 mg Magnesium Hydroxide (Milk Of Magnesia) 30 ml PO DAILY PRN PRN PRN Reason: Constipation Nutritional Formula (Lactose Free) (Glucerna Shake) 120 ml PO 4X/DAY [facility] Nystatin (Mycostatin Powder) 1 applic TOPICAL TID [facility] PRN Reason: Protocol Last Admin: 02/04/18 05:29 Dose: 1 applicatio Ondansetron HCl (Zofran) 4 mg IV Q4H PRN PRN PRN Reason: Nausea Last Admin: 02/04/18 02:50 Dose: 4 mg Polyethylene Glycol (Miralax) 17 gm PO DAILY [facility] Last Admin: 02/03/18 11:54 Dose: Not Given Psyllium Hydrophilic Mucilloid (Metamucil) 1 packet PO DAILY PRN PRN PRN Reason: CONSTIPATION Senna/Docusate Sodium (Senokot-S, Melvi-Colace) 2 tablet PO BID PRN PRN PRN Reason: constipation Sodium Chloride () 5 - 30 ml IV UD PRN PRN Reason: SALINE FLUSH Last Admin: 02/03/18 16:39 Dose: 10 ml Medical Necessity - Tobacco Use Smoking Status: Never smoker Assessment/Plan Active and Suspected Problems Abdominal pain (Acute) Ascites (Acute) Right lower lobe CAP (Acute) Acute kidney injury (Acute) 37 year old F with history of asthma, prior history of uterine CA s/p hysterectomy, recently diagnosed with right lower lobe community acquired pneumonia and asthma exacerbation admitted with intractable nausea, vomiting, abdominal pain. 1. Intractable nausea and vomiting, multifactorial in etiology, likely related to current YARED /newly diagnosed ascites, resolved 2. Right upper quadrant pain secondary to hepatomegaly, LFTs are not remarkable nightly secondary to fatty liver, hepatitis profile is negative, other immunological workups are pending. 3. Newly found ascites, status post abdominal paracentesis, fluid analysis shows red color, slightly cloudy, RBC present, fluid cytology is pending, ascitic fluid LDH to serum LDH ratio is more than 2, suggestive of malignant ascites, will request for records of recent surgery for uterine cancer. 4. Acute kidney injury likely prerenal, FeNa is 0.77, on IV fluids with improvement in creatinine, no hydronephrosis on renal ultrasound, continue on IV fluids and repeat BMP in a.m. 5. Sepsis secondary to right lower lobe community-acquired pneumonia likely secondary to gram-positive and atypical organisms, this was present on admission , on IV ceftriaxone and Flagyl, will continue to monitor. 6. Chronic intermittent asthma, stable, no signs of acute exacerbation. 7. Recent diagnosis of uterine cancer status post complete hysterectomy and bilateral salpingo-cystectomy, will get records from previous facility. 8. DVT PPx - Heparin SC Code Visit Inpatient E&M: 31532 Subs Hosp L3
[2018-02-04 08:25] LABS: Glucose, Body Fluid 86 mg/dL (40-70)
--- NOTE | 2018-02-04 08:39 | NURSING ---
ns increased to 100cc/hr at this time per new physician order.
[2018-02-04] MEDS: HYDROmorphone 1 MG/ML Syringe IV ×3 (08:47→22:43)
[2018-02-04] MEDS: Ceftriaxone 1 GM/50 ML BAG IV (09:46)
[2018-02-04] MEDS: Heparin Injection (Vial) 5,000 UNIT/ML VIAL 5000 UNIT SC ×2 (09:49→21:22)
[2018-02-04] MEDS: 0.9% Normal Saline 1,000 ML 100 ML IV ×2 (10:39→21:22)
[2018-02-04 11:29] LABS: Hep C Antibodies <0.1 s/co ratio (0.0-0.9)
[2018-02-04 11:45] LABS: Bedside Glucose 175 mg/dL (70-110)
--- NOTE | 2018-02-04 12:08 | PN.RENAL_ITS ---
Patient Problems: Active and Suspected Problems Abdominal pain (Acute) Ascites (Acute) Right lower lobe CAP (Acute) Acute kidney injury (Acute) Subjective: still with nausea, dry heaves, abdominal pain suprapubic. Reviewed xray reports. renal fxn improving with iv fluids. No BM yet. Refusing miralax per nursing . - Physical Exam General: Alert, Oriented x3, No apparent distress Lungs: Clear to auscultation Cardiovascular: Regular rate Abdomen: Bowel Sounds Present, Obese, Tender - suprapubic, mid abdomen Vital Signs Temp Pulse Resp BP Pulse Ox 97.8 F 121 H 18 137/81 H 94 02/04/18 08:38 02/04/18 10:00 02/04/18 08:38 02/04/18 08:38 02/04/18 08:56 Oxygen Delivery Method Room Air Weight: 104 kg Intake and Output for Last 24 Hours 02/02/18 02/03/18 02/04/18 23:59 23:59 23:59 Intake Total 3001 / 3001 1838 / 1838 Output Total 800 / 800 625 / 625 Balance 2201 / 2201 1213 / 1213 Microbiology Past 72 Hours 02/03/18 05:38 Streptococcus pneumoniae Antigen (M - Final Urine, Clean Catch 02/03/18 05:38 Legionella Antigen - Final Urine, Clean Catch Laboratory Tests Past 24 Hrs 02/03/18 02/03/18 02/03/18 05:25 15:00 15:00 WBC RBC Hgb Hct MCV MCH MCHC RDW RDW Differential Plt Count MPV Immature Gran % (Auto) Neut % (Auto) Lymph % (Auto) [place] % (Auto) Eos % (Auto) Baso % (Auto) Absolute Neuts (auto) Absolute Lymphs (auto) Total Counted Sodium Potassium Chloride Carbon Dioxide Anion Gap BUN Creatinine Estim Creat Clear Calc Est GFR (MDRD) Af Amer Est GFR (MDRD) Non-Af BUN/Creatinine Ratio Glucose Calcium Magnesium U Random Total Protein Ur Random Sodium Urine Creatinine Fluid Source Fluid Color Fluid Appearance Fluid Specific Grav Fluid WBC Fluid RBC Fluid Tot Cell Count Fld Polynuclear WBCs # Fld Polynuclear WBCs % Fluid Mononuclear WBCs Fld Mononuclear WBCs % Fluid Neutrophils Fluid Lymphocytes Fluid Monocytes Fld Mesothelial Cells Fl Pathologist Comment Fluid Glucose 86 H Fluid Total Protein Fluid LDH 1221 Fluid Amylase Pending Fluid Comment 2 Hepatitis A IgM Ab Negative Hep Bs Antigen Negative Hep B Core IgM Ab Negative Hepatitis C Ab (EIA) <0.1 Miscellaneous Cytology 02/03/18 02/03/18 02/03/18 15:00 15:00 15:00 WBC RBC Hgb Hct MCV MCH MCHC RDW RDW Differential Plt Count MPV Immature Gran % (Auto) Neut % (Auto) Lymph % (Auto) [place] % (Auto) Eos % (Auto) Baso % (Auto) Absolute Neuts (auto) Absolute Lymphs (auto) Total Counted Sodium Potassium Chloride Carbon Dioxide Anion Gap BUN Creatinine Estim Creat Clear Calc Est GFR (MDRD) Af Amer Est GFR (MDRD) Non-Af BUN/Creatinine Ratio Glucose Calcium Magnesium U Random Total Protein Ur Random Sodium Urine Creatinine Fluid Source Fluid Color Fluid Appearance Fluid Specific Grav Fluid WBC Fluid RBC Fluid Tot Cell Count Fld Polynuclear WBCs # Fld Polynuclear WBCs % Fluid Mononuclear WBCs Fld Mononuclear WBCs % Fluid Neutrophils Fluid Lymphocytes Fluid Monocytes Fld Mesothelial Cells Fl Pathologist Comment Fluid Glucose Fluid Total Protein 3.4 Fluid LDH Fluid Amylase Fluid Comment 2 Hepatitis A IgM Ab Hep Bs Antigen Hep B Core IgM Ab Hepatitis C Ab (EIA) Miscellaneous Cytology Pending Pending 02/03/18 02/03/18 02/03/18 15:00 15:00 15:00 WBC RBC Hgb Hct MCV MCH MCHC RDW RDW Differential Plt Count MPV Immature Gran % (Auto) Neut % (Auto) Lymph % (Auto) [place] % (Auto) Eos % (Auto) Baso % (Auto) Absolute Neuts (auto) Absolute Lymphs (auto) Total Counted Sodium Potassium Chloride Carbon Dioxide Anion Gap BUN Creatinine Estim Creat Clear Calc Est GFR (MDRD) Af Amer Est GFR (MDRD) Non-Af BUN/Creatinine Ratio Glucose Calcium Magnesium U Random Total Protein Ur Random Sodium Urine Creatinine Fluid Source Cancelled Fluid Color RED RED Cancelled Fluid Appearance SL CLDY SL CLDY Cancelled Fluid Specific Grav 1.021 Fluid WBC 0.294 Cancelled Fluid RBC 0.65848 Cancelled Fluid Tot Cell Count Cancelled Fld Polynuclear WBCs # Cancelled Fld Polynuclear WBCs % Cancelled Fluid Mononuclear WBCs Cancelled Fld Mononuclear WBCs % Cancelled Fluid Neutrophils 31 Fluid Lymphocytes 31 Fluid Monocytes 32 Fld Mesothelial Cells 6 Fl Pathologist Comment May follow Fluid Glucose Fluid Total Protein Fluid LDH Fluid Amylase Fluid Comment 2 Cancelled Hepatitis A IgM Ab Hep Bs Antigen Hep B Core IgM Ab Hepatitis C Ab (EIA) Miscellaneous Cytology 02/03/18 02/03/18 02/03/18 16:50 16:50 16:50 WBC RBC Hgb Hct MCV MCH MCHC RDW RDW Differential Plt Count MPV Immature Gran % (Auto) Neut % (Auto) Lymph % (Auto) [place] % (Auto) Eos % (Auto) Baso % (Auto) Absolute Neuts (auto) Absolute Lymphs (auto) Total Counted Sodium Potassium Chloride Carbon Dioxide Anion Gap BUN Creatinine Estim Creat Clear Calc Est GFR (MDRD) Af Amer Est GFR (MDRD) Non-Af BUN/Creatinine Ratio Glucose Calcium Magnesium U Random Total Protein 21.4 H Ur Random Sodium 41 Urine Creatinine 119.00 Fluid Source Fluid Color Fluid Appearance Fluid Specific Grav Fluid WBC Fluid RBC Fluid Tot Cell Count Fld Polynuclear WBCs # Fld Polynuclear WBCs % Fluid Mononuclear WBCs Fld Mononuclear WBCs % Fluid Neutrophils Fluid Lymphocytes Fluid Monocytes Fld Mesothelial Cells Fl Pathologist Comment Fluid Glucose Fluid Total Protein Fluid LDH Fluid Amylase Fluid Comment 2 Hepatitis A IgM Ab Hep Bs Antigen Hep B Core IgM Ab Hepatitis C Ab (EIA) Miscellaneous Cytology 02/04/18 02/04/18 05:25 05:25 WBC 12.5 H RBC 4.54 Hgb 10.1 L Hct 32.3 L MCV 71.1 L MCH 22.2 L MCHC 31.3 L RDW 18.8 H RDW Differential 48.7 H Plt Count 273 MPV 8.9 Immature Gran % (Auto) 0.400 Neut % (Auto) 82.6 H Lymph % (Auto) 8.6 L [place] % (Auto) 8.1 Eos % (Auto) 0.2 Baso % (Auto) 0.1 Absolute Neuts (auto) 10.3 H Absolute Lymphs (auto) 1.08 Total Counted Not Reportable Sodium 138 Potassium 4.4 Chloride 103 Carbon Dioxide 25.0 Anion Gap 10 BUN 47 H Creatinine 3.10 H Estim Creat Clear Calc 22.58 Est GFR (MDRD) Af Amer 22 L Est GFR (MDRD) Non-Af 18 L BUN/Creatinine Ratio 15.2 Glucose 98 Calcium 8.3 L Magnesium 1.7 U Random Total Protein Ur Random Sodium Urine Creatinine Fluid Source Fluid Color Fluid Appearance Fluid Specific Grav Fluid WBC Fluid RBC Fluid Tot Cell Count Fld Polynuclear WBCs # Fld Polynuclear WBCs % Fluid Mononuclear WBCs Fld Mononuclear WBCs % Fluid Neutrophils Fluid Lymphocytes Fluid Monocytes Fld Mesothelial Cells Fl Pathologist Comment Fluid Glucose Fluid Total Protein Fluid LDH Fluid Amylase Fluid Comment 2 Hepatitis A IgM Ab Hep Bs Antigen Hep B Core IgM Ab Hepatitis C Ab (EIA) Miscellaneous Cytology POC Glucose 02/04/18 02/04/18 02/04/18 11:39 06:39 01:25 POC Glucose 175 H 105 113 H 02/03/18 02/03/18 02/03/18 22:02 17:05 11:48 POC Glucose 98 76 100 Medical Necessity - Tobacco Use Smoking Status: Never smoker Assessment/Plan Active and Suspected Problems Abdominal pain (Acute) Ascites (Acute) Right lower lobe CAP (Acute) Acute kidney injury (Acute) 1. Acute kidney injury likely due to dehydration, nausea vomiting. Baseline creatinine 1.03 on January 27 increased to 4.36 on admission to 3.1 today with IV hydration. Continue with IV fluids. Fena <1 2. Hepatomegaly with echogenic liver on US, hypoalbuminemia. Liver enzymes normal. hepatitis panel normal 3. Ascites s/p paracentesis. 4. History of uterine cancer status post hysterectomy in August 2017. 5. Morbid obesity. 6. Intractable nausea and vomiting. Continue with IV fluids. 7. Leukocytosis on iv antbx, await urine c/s. Recent RLL CAP/
[2018-02-04 14:22] LABS: ANTINUCLEAR ANTIBODIES DIRECT Negative (Negative)
[2018-02-04] MEDS: Glucerna Shake 120 ML LIQUID PO ×2 (14:22→17:43)
[2018-02-04 14:26] LABS: Amylase Body Fluid 4 U/L (.)
[2018-02-04] MEDS: 0.9% NaCl Peripheral Flush Adult/Peds IV ×2 (14:30→17:42)
[2018-02-04 16:35] LABS: Bedside Glucose 109 mg/dL (70-110)
--- NOTE | 2018-02-04 21:07 | PCM.CONS.GEN ---
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 The patient's history is remarkable for a total abdominal hysterectomy and bilateral salpingectomy on August 20, 2017 at [facility] in [place] per Dr. Anshu Segura. Final pathology at that time showed a sarcoma which was undifferentiated but margins were negative. The sarcoma deeply invaded the myometrium and deeply invaded the cervical wall involving almost the full-thickness of the cervical wall. Extensive vascular invasion was identified. The patient was recently seen in the emergency department in [place] and noted to have pneumonia and had been started on Levaquin. Upon presentation to the emergency department yesterday the patient was also noted to have an elevated creatinine which had gone from approximately 1.3 to 4.2 recently. Patient's white count was elevated to approximately 18. Since admission the patient has been on Rocephin and Zithromax and her white count has diminished to approximately 12. Her nausea and vomiting have subsided somewhat on IV Zofran. CT scan was done with multiple large pelvic masses is noted as well as ascites. Ultrasound also showed ascites. Paracentesis was performed with approximately 275 cc of fluid moved and initial pathology is highly suggestive of recurrent malignant sarcoma. [] Past Medical History Past Medical History (Chronic Problems): Chronic Problems History of uterine cancer (Chronic) History of hysterectomy plus bilateral salpingo-oophorectomy August 2017 Asthma (Chronic) Allergies Penicillins [PCN] Allergy (Verified 02/02/18 16:47) Hives Home Medications: Ambulatory Orders Medication Instructions Recorded Albuterol Inhaler [Ventolin Hfa] 1 - 2 puff INHALATION Q4H PRN PRN 01/27/18 #1 inhaler Cetirizine HCl [Zyrtec] 10 mg PO DAILY 01/27/18 Levofloxacin [Levaquin] 750 mg PO DAILY #7 tablet 01/27/18 Prednisone [Deltasone] 60 mg PO DAILY #15 tablet 01/27/18 Sitagliptin Phosphate [Januvia] 25 mg PO DAILY 02/03/18 Surgical History: hysterectomy - August 2017, ankle surgery 6 years ago [employer]STRUCTION E[employer]IPMENT [employer]CH[employer] History: - - Uterine Sarcoma Smoking Status: Never smoker Tobacco Use: Non-smoker Alcohol: None Drugs: None - *Family History Maternal History Items: Asthma, - - with liver failure from alcoholism Paternal History Items: Cancer - Lung Review of Systems Constitutional: Denies: Chills, Fever, Weight Change HEENT: Denies: Difficulty Hearing, Difficulty Swallowing, Nasal bleeding, Nasal Congestion, Sore Throat, Visual Changes Cardiovascular: Denies: Chest Pain, Palpitations Respiratory: Denies: Cough, Hemoptysis Gastrointestinal: Reports: Abdominal Pain, Nausea, Vomiting Genitourinary: Denies: Dysuria, Frequency, Hematuria, Incontinence, Urgency Musculoskeletal: Reports: Back Pain. Denies: Joint Pain, Muscle pain Skin: Denies: Lesions, Skin Changes Neurological: Denies: Focal weakness, Numbness Endocrine: Reports: - - Has type 2 diabetes. Denies: Heat/ Cold Intolerance Hematologic/ Lymphatic: Denies: Easy Bleeding Patient Problems: Active and Suspected Problems Abdominal pain (Acute) Ascites (Acute) Right lower lobe CAP (Acute) Acute kidney injury (Acute) - Physical Exam General: Alert, Oriented x3, Cooperative HEENT: Normocephalic, - - hirsuit hair loss pattern Neck: No Nodes, No Nuchal Rigidity, Thyroid Normal Size and Texture Lungs: Clear to auscultation - bilaterally, No wheeze Cardiovascular: Regular rate, No murmurs, No rub noted Abdomen: Bowel Sounds Present, Distended, Guarding, - - No guarding, hepatomegaly, splenomegaly, rebound tenderness Extremities: No clubbing, No cyanosis, No edema Skin: No rashes Musculoskeletal: No Muscle Wasting Neurological: Cranial nerves II-XII grossly intact Psych/Mental Status: Appropriate, Alert and oriented to time, place, person, mood and affect Vital Signs Temp Pulse Resp BP Pulse Ox 98 F 113 H 18 107/70 94 02/04/18 14:14 02/04/18 17:05 02/04/18 14:14 02/04/18 14:14 02/04/18 14:14 Oxygen Delivery Method Room Air Weight: 229 lb 4.492 oz Intake and Output for Last 24 Hours 02/02/18 02/03/18 02/04/18 23:59 23:59 23:59 Intake Total 3001 / 3001 2564 / 2564 Output Total 800 / 800 1025 / 1025 Balance 2201 / 2201 1539 / 1539 Microbiology Past 72 Hours 02/03/18 05:38 Urine Culture - Final Urine, Clean Catch Coag Negative Staph 02/03/18 05:38 Streptococcus pneumoniae Antigen (M - Final Urine, Clean Catch 02/03/18 05:38 Legionella Antigen - Final Urine, Clean Catch Laboratory Tests Past 24 Hrs 02/03/18 02/03/18 02/03/18 05:25 05:25 15:00 WBC RBC Hgb Hct MCV MCH MCHC RDW RDW Differential Plt Count MPV Immature Gran % (Auto) Neut % (Auto) Lymph % (Auto) [place] % (Auto) Eos % (Auto) Baso % (Auto) Absolute Neuts (auto) Absolute Lymphs (auto) Total Counted Sodium Potassium Chloride Carbon Dioxide Anion Gap BUN Creatinine Estim Creat Clear Calc Est GFR (MDRD) Af Amer Est GFR (MDRD) Non-Af BUN/Creatinine Ratio Glucose Calcium Magnesium Fluid Glucose Fluid Amylase 4 ROBERT Screen Negative Hepatitis A IgM Ab Negative Hep Bs Antigen Negative Hep B Core IgM Ab Negative Hepatitis C Ab (EIA) <0.1 Miscellaneous Test 02/03/18 02/03/18 02/04/18 15:00 15:00 05:25 WBC 12.5 H RBC 4.54 Hgb 10.1 L Hct 32.3 L MCV 71.1 L MCH 22.2 L MCHC 31.3 L RDW 18.8 H RDW Differential 48.7 H Plt Count 273 MPV 8.9 Immature Gran % (Auto) 0.400 Neut % (Auto) 82.6 H Lymph % (Auto) 8.6 L [place] % (Auto) 8.1 Eos % (Auto) 0.2 Baso % (Auto) 0.1 Absolute Neuts (auto) 10.3 H Absolute Lymphs (auto) 1.08 Total Counted Not Reportable Sodium Potassium Chloride Carbon Dioxide Anion Gap BUN Creatinine Estim Creat Clear Calc Est GFR (MDRD) Af Amer Est GFR (MDRD) Non-Af BUN/Creatinine Ratio Glucose Calcium Magnesium Fluid Glucose 86 H Fluid Amylase ROBERT Screen Hepatitis A IgM Ab Hep Bs Antigen Hep B Core IgM Ab Hepatitis C Ab (EIA) Miscellaneous Test Pending 02/04/18 05:25 WBC RBC Hgb Hct MCV MCH MCHC RDW RDW Differential Plt Count MPV Immature Gran % (Auto) Neut % (Auto) Lymph % (Auto) [place] % (Auto) Eos % (Auto) Baso % (Auto) Absolute Neuts (auto) Absolute Lymphs (auto) Total Counted Sodium 138 Potassium 4.4 Chloride 103 Carbon Dioxide 25.0 Anion Gap 10 BUN 47 H Creatinine 3.10 H Estim Creat Clear Calc 22.58 Est GFR (MDRD) Af Amer 22 L Est GFR (MDRD) Non-Af 18 L BUN/Creatinine Ratio 15.2 Glucose 98 Calcium 8.3 L Magnesium 1.7 Fluid Glucose Fluid Amylase ROBERT Screen Hepatitis A IgM Ab Hep Bs Antigen Hep B Core IgM Ab Hepatitis C Ab (EIA) Miscellaneous Test POC Glucose 02/04/18 02/04/18 02/04/18 16:32 11:39 06:39 POC Glucose 109 175 H 105 02/04/18 02/03/18 01:25 22:02 POC Glucose 113 H 98 Assessment/Plan Active and Suspected Problems Abdominal pain (Acute) Ascites (Acute) Right lower lobe CAP (Acute) Acute kidney injury (Acute) Patient with likely recurrence of uterine malignant sarcoma. Awaiting final pathology on paracentesis fluid. If this is confirmed Cynthia may need reoperation for removal of the pelvic malignant sarcomatous masses to control ascites and current symptoms. A possible option could be to refer her to [employer] oncology at [facility] where she had her original surgery performed last August for management of this likely recurrence. I will discuss this further with the primary care team this weekend. Thank you for your kind consultation of this pleasant patient. I will continue to follow with you.
[2018-02-04 21:16] LABS: Bedside Glucose 154 mg/dL (70-110)
[2018-02-04] MEDS: Senna/Docusate Sodium 1 Tablet 2 TABLET PO (21:22)
--- NOTE | 2018-02-04 22:00 | NURSING ---
called Mother in Law (pt's melissa's mother), per her request to update on POC since talking to Dr. Banks. Pt will need to eventually be transferred for surgery.
[2018-02-05] VITALS (9 sets, daily range): BP systolic 113–122; BP diastolic 81–86; PULSE 107–123; RESP 18–24; TEMP 36.4–36.8; O2SAT 92–95
[2018-02-05] MEDS: HYDROmorphone 1 MG/ML Syringe IV ×2 (02:08→06:25)
[2018-02-05] MEDS: Metoprolol Tartrate 25 MG Tablet PO (02:13)
[2018-02-05] MEDS: Ondansetron 4 MG/2 ML Vial IV (02:14)
[2018-02-05] MEDS: 0.9% Normal Saline 1,000 ML 100 ML IV (06:24)
[2018-02-05 06:35] LABS: Bedside Glucose 125 mg/dL (70-110)
--- NOTE | 2018-02-05 08:04 | NURSING ---
Addendum entered by Maria Esther Linn 02/05/18 08:25: [facility] called, pt will be transferred to [address], bed 732, admitting Dr Rios. phone number to call nurse to nurse report [phone] Original Note: face sheet faxed to [facility] per request of Dr Ren. [phone]
[2018-02-05 08:45] LABS: Anion Gap 8 (5-15); BUN 39 mg/dL (7-18); BUN/Creat Ratio 16.5 RATIO (10-20); Calcium,Total 8.3 mg/dL (8.5-10.1); Chloride 105 mmol/L (98-107); Creatinine, Serum 2.36 mg/dL (0.55-1.02); EST Glomerular Filtration Rate 25 mL/min (>60); Est Glom Filt Rate - Afr Amer 30 mL/min (>60); Estimated Creatinine Clearance 29.65 ml/min; Glucose 111 mg/dL (74-106); Magnesium 1.8 mg/dL (1.6-2.6); Potassium 4.1 mmol/L (3.5-5.1); Sodium Level 135 mmol/L (136-145)
--- NOTE | 2018-02-05 09:04 | PCM.DC.SUM ---
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 #2 acute kidney injury secondary to dehydration #3 right lower lobe community-acquired ooanhqxwq-tfrm-mgpmucbx bacterial #4 anemia of chronic disease (sarcoma) - Secondary Discharge Diagnosis Chronic Problems History of uterine cancer (Chronic) History of hysterectomy plus bilateral salpingo-oophorectomy August 2017 Asthma (Chronic) Hospital Course and Treatment Operations: None Procedures: Paracentesis Summary of Care Provided: The patient is a 37 year old F was seen in the emergency room at [facility] with chief complaint of nausea vomiting and abdominal pain, workup in the ER revealed her creatinine to be elevated at 4.36, patient's white blood cell count was elevated, chest x-ray revealed a right lower lobe infiltrate suggesting community-acquired pneumonia. Ultrasound of the abdomen showed ascites and gallbladder sludge. Patient was admitted to [place] [address], given IV fluids, IV antibiotics, and seen in consultation by AGING DEPARTMENT SUPERVISOR surgery, CT of the abdomen and pelvis was obtained which showed a large amount of ascites and evidence of masses in the pelvis and possibly psoas muscle. Paracentesis was performed. The AGING DEPARTMENT SUPERVISOR service felt that the patient would be better served to transfer her to a tertiary care center where she had her previous surgery in August 2017. That surgery diagnosed sarcoma, it was believed the patient had recurrent sarcoma presently. On 02/05/18, patient was seen and examined felt to be in stable condition for transfer to [facility] under Dr. Farley's service Home Medications: Medications to take at Discharge Albuterol Inhaler [Ventolin Hfa] 1 - 2 puff INHALATION Q4H PRN PRN #1 inhaler 01/27/18 Cetirizine HCl [Zyrtec] 10 mg PO DAILY 01/27/18 Levofloxacin [Levaquin] 750 mg PO DAILY #7 tablet 01/27/18 Prednisone [Deltasone] 60 mg PO DAILY #15 tablet 01/27/18 Sitagliptin Phosphate [Januvia] 25 mg PO DAILY 02/03/18 Primary Care Physician: Care Physician,No Primary [Primary Care Provider] - Disposition: Acute care Hospital Minutes spent on discharge:: 35 Patient Condition:: Stable Medical Necessity - Tobacco Use Smoking Status: Never smoker Tobacco Use: Non-smoker Meaningful Use Info Meaningful Use Diagnoses (Choose all that apply): None applicable Code Visit Inpatient E&M: 62890 Disch Hosp
--- NOTE | 2018-02-05 09:14 | DS.PCM_ITS ---
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 #2 acute kidney injury secondary to dehydration #3 right lower lobe community-acquired nivnagszj-ssdj-tuxwpumz bacterial #4 anemia of chronic disease (sarcoma) - Secondary Discharge Diagnosis Chronic Problems History of uterine cancer (Chronic) History of hysterectomy plus bilateral salpingo-oophorectomy August 2017 Asthma (Chronic) Hospital Course and Treatment Operations: None Procedures: Paracentesis Summary of Care Provided: The patient is a 37 year old F was seen in the emergency room at [facility] with chief complaint of nausea vomiting and abdominal pain, workup in the ER revealed her creatinine to be elevated at 4.36, patient's white blood cell count was elevated, chest x-ray revealed a right lower lobe infiltrate suggesting community-acquired pneumonia. Ultrasound of the abdomen showed ascites and gallbladder sludge. Patient was admitted to [place] [address], given IV fluids, IV antibiotics, and seen in consultation by PAYROLL ACCOUNTING CLERK surgery, CT of the abdomen and pelvis was obtained which showed a large amount of ascites and evidence of masses in the pelvis and possibly psoas muscle. Paracentesis was performed. The PAYROLL ACCOUNTING CLERK service felt that the patient would be better served to transfer her to a tertiary care center where she had her previous surgery in August 2017. That surgery diagnosed sarcoma, it was believed the patient had recurrent sarcoma presently. On 02/05/18, patient was seen and examined felt to be in stable condition for transfer to [facility] under Dr. Farley's service Home Medications: Medications to take at Discharge Albuterol Inhaler [Ventolin Hfa] 1 - 2 puff INHALATION Q4H PRN PRN #1 inhaler Cetirizine HCl [Zyrtec] 10 mg PO DAILY 01/27/18 Levofloxacin [Levaquin] 750 mg PO DAILY #7 tablet 01/27/18 Prednisone [Deltasone] 60 mg PO DAILY #15 tablet 01/27/18 Sitagliptin Phosphate [Januvia] 25 mg PO DAILY 02/03/18 Primary Care Physician: Care Physician,No Primary [Primary Care Provider] - Disposition: Acute care Hospital Minutes spent on discharge:: 35 Patient Condition:: Stable Medical Necessity - Tobacco Use Smoking Status: Never smoker Tobacco Use: Non-smoker Meaningful Use Info Meaningful Use Diagnoses (Choose all that apply): None applicable Code Visit Inpatient E&M: 16587 Disch Hosp
[2018-02-05] MEDS: Ceftriaxone 1 GM/50 ML BAG IV (10:16)
[2018-02-05] MEDS: Heparin Injection (Vial) 5,000 UNIT/ML VIAL 5000 UNIT SC (12:05)
--- NOTE | 2018-02-05 12:25 | NURSING ---
1150 report called to Monica Alford RN. pt informed report called and waiting for transport Bhanu Perez RN
[2018-02-07 12:40] LABS: Anti-Smooth Muscle ABS 11 Units (0-19)
[2018-02-08 09:28] LABS: Auto B Fluid Analyzer BKGD Ct COUNTS W/IN LIMITS (W/IN LIMITS)
== END 2018-02-05 12:15 | disposition short-term general hospital (02) | DRG 416 ==
LOC: ED 18:30 → MS2 23:37
PROVIDERS: Internal Medicine; Internal Medicine Nephrology; Admitting Provider Internal Medicine; Emergency Provider Emergency Medicine; Visit Provider Internal Medicine
DX: A41.9 Sepsis, unspecified organism (principal); R18.0 Malignant ascites; N17.9 Acute kidney failure, unspecified; E86.0 Dehydration; N13.30 Unspecified hydronephrosis; J18.9 Pneumonia, unspecified organism; C76.2 Malignant neoplasm of abdomen; D63.8 Anemia in other chronic diseases classified elsewhere; Z85.42 Personal history of malignant neoplasm of other parts of uterus; Z90.710 Acquired absence of both cervix and uterus; E66.01 Morbid (severe) obesity due to excess calories; Z68.37 Body mass index [BMI] 37.0-37.9, adult; Z71.3 Dietary counseling and surveillance; J45.20 Mild intermittent asthma, uncomplicated
CPT/HCPCS: 36415; 49083; 71046; 74022; 74176; 76705; 76770; 80048; 80074; 80076; 81001; 81002; 82150; 82570; 82945; 82962; 83036; 83516; 83605; 83615; 83690; 83735; 84156; 84157; 84300; 84703; 85025; 85610; 85730; 86038; 86225; 86235; 87086; 87088; 87449; 88108; 88305; 88313; 89050; 93005; 97802; 99282; J7030; J7040; A4216; J2405

== ENCOUNTER → 2018-03-10 16:32 | Outpatient (CLI) | payer MEDICAID, SELFPAY ==
[2018-03-10 16:55] LABS: Anion Gap 13 (5-15); BUN 52 mg/dL (7-18); Calcium,Total 8.5 mg/dL (8.5-10.1); Chloride 96 mmol/L (98-107); Creatinine, Serum 6.53 mg/dL (0.55-1.02); EST Glomerular Filtration Rate 8 mL/min (>60); Est Glom Filt Rate - Afr Amer 9 mL/min (>60); Glucose 96 mg/dL (74-106); Potassium 4.2 mmol/L (3.5-5.1); Sodium Level 133 mmol/L (136-145)
== END ==
DX: N17.9 Acute kidney failure, unspecified (principal)
CPT/HCPCS: 80048